=== PATIENT | male | born 1945 | race Caucasian/White ===

== ENCOUNTER → 2016-07-31 | Outpatient (CLI) | payer OTHER ==
--- NOTE | 2016-07-31 13:23 | DIAGNOSTIC IMAGING REPORT ---
PROCEDURE: XR HIP 2VW W W/O AP PELVIS-LT INDICATION: LEFT HIP PX TECHNIQUE: AP view of the pelvis and hips with lateral view of the left hip. COMPARISON: None. FINDINGS: LEFT HIP: No fracture or dislocation. Mild degenerative changes. PELVIS: Osteopenia but no suspicious osseous lesion. 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 IMPRESSION: 1. Mild left hip degenerative changes 2. Atherosclerosis
== END ==
LOC: XR SRH 12:43
DX: M16.12 Unilateral primary osteoarthritis, left hip (principal); I70.202 Unspecified atherosclerosis of native arteries of extremities, left leg

== ENCOUNTER → 2016-09-17 | Emergency (ER) | payer OTHER ==
--- NOTE | 2016-09-17 21:36 | ED ORDER SUMMARY ---
..... Patient: YANDEL CALVO OrderSheet [facility] VisitID: [id number] [place] [address] 71y, M Registration Date/Time: 09/17/2016 ORDER SHEET Weight: 136.0 kg (estimated) Allergies: NKA, No Known Drug Allergy GENERAL ORDERS: CBC w Diff Urgent (20:02 09/17/2016 Ricky EM) (Ack 20:03 IJurca ER Tech1) (Sent 20:03 IJurca ER Tech1) (20:05 AMcQuoid ER Tech1) CMP Urgent (20:02 09/17/2016 Ricky EM) (Ack 20:03 IJurca ER Tech1) (Sent 20:03 IJurca ER Tech1) (20:05 AMcQuoid ER Tech1) UA-Culture if indicated Urgent (20:02 09/17/2016 Ricky EM) (Ack 20:03 IJurca ER Tech1) (21:08 KKnebel R.N.) Lipase Urgent (20:02 09/17/2016 Ricky EM) (Ack 20:03 IJurca ER Tech1) (Sent 20:03 IJurca ER Tech1) (20:05 AMcQuoid ER Tech1) Amylase Urgent (20:02 09/17/2016 Ricky EM) (Ack 20:03 IJurca ER Tech1) (Sent 20:03 IJurca ER Tech1) (20:05 AMcQuoid ER Tech1) MEDICATION ORDERS: IV FLUIDS: IV NS : initial bolus 1000 mL (1000 mL/hr), then none - (NOW) (20:01 09/17/2016 Ricky EM) (20:14 KKnebel R.N.) Dilaudid IV 1 mg (HIGH ALERT MEDICATION, NOW) (20:09/17/2016 Ricky EM) (20:18 KKnebel R.N.) Protonix IVP 40mg 40 mg (Mix in NS 10ml over 2min) (21:35 09/17/2016 Indy ME) (Ack 21:45 RCnicanor R.N.) (21:47 Barbwidino R.N.) ORDER SHEET NOTES: [Electronically signed by Jazmine Barber R.N. (22:39 09/17/2016)] [Electronically signed by Cheng Orr MD (00:54 09/18/2016)] [Electronically locked/signed by Jazmine Barber R.N. (22:39 09/17/2016)]
--- NOTE | 2016-09-17 21:36 | ED ORDER SUMMARY ---
..... Patient: YANDEL CALVO OrderSheet [facility] VisitID: [id number] [place] [address] 71y, M Registration Date/Time: 09/17/2016 ORDER SHEET Weight: 136.0 kg (estimated) Allergies: NKA, No Known Drug Allergy GENERAL ORDERS: CBC w Diff Urgent (20:02 09/17/2016 Ricky EM) (Ack 20:03 IJurca ER Tech1) (Sent 20:03 IJurca ER Tech1) (20:05 AMcQuoid ER Tech1) CMP Urgent (20:02 09/17/2016 Ricky EM) (Ack 20:03 IJurca ER Tech1) (Sent 20:03 IJurca ER Tech1) (20:05 AMcQuoid ER Tech1) UA-Culture if indicated Urgent (20:02 09/17/2016 Ricky EM) (Ack 20:03 IJurca ER Tech1) (21:08 KKnebel R.N.) Lipase Urgent (20:02 09/17/2016 Ricky EM) (Ack 20:03 IJurca ER Tech1) (Sent 20:03 IJurca ER Tech1) (20:05 AMcQuoid ER Tech1) Amylase Urgent (20:02 09/17/2016 Ricky EM) (Ack 20:03 IJurca ER Tech1) (Sent 20:03 IJurca ER Tech1) (20:05 AMcQuoid ER Tech1) MEDICATION ORDERS: IV FLUIDS: IV NS : initial bolus 1000 mL (1000 mL/hr), then none - (NOW) (20:01 09/17/2016 Ricky EM) (20:14 KKnebel R.N.) Dilaudid IV 1 mg (HIGH ALERT MEDICATION, NOW) (20:09/17/2016 Ricky EM) (20:18 KKnebel R.N.) Protonix IVP 40mg 40 mg (Mix in NS 10ml over 2min) (21:35 09/17/2016 Indy EM) (Ack 21:45 RCnicanor R.N.) (21:47 Barbwidino R.N.) ORDER SHEET NOTES: [Electronically signed by Jazmine Barber R.N. (22:39 09/17/2016)] [Electronically signed by Cheng Orr MD (00:54 09/18/2016)] [Electronically locked/signed by Jazmine Barber R.N. (22:39 09/17/2016)]
--- NOTE | 2016-09-17 21:36 | ED CLINICAL REPORT ---
Clinical Report - Physicians/Mid Levels [facility] [address] [place] [address] 09/17/2016 19:34 Patient: YANDEL CALVO Time Seen: 1935. Arrived- By ambulance. Historian- patient and EMS personnel. HISTORY OF PRESENT ILLNESS Chief Complaint: ABDOMINAL PAIN. This started about 1 hour ago and is still present. At its maximum, severity described as moderate. When seen in the E.D., severity described as moderate. Modifying factors. Not worsened by anything. Not relieved by anything. It is described as "pain" and it is described as located in the upper abdomen. The patient has had nausea. No loss of appetite, vomiting or diarrhea. Similar symptoms previously: Occasionally. Recent medical care: Not recently seen/assessed. REVIEW OF SYSTEMS No constipation, black stools, hematemesis, difficulty with urination or pain with urination. No urinary frequency, bloody stools, fever, headache or sore throat. No blurred vision, chest pain, difficulty breathing, cough or joint pain. No skin rash, chills or back pain. All systems otherwise negative, except as recorded above. PAST HISTORY he reports a history of duodenal polyps. He says that he has had multiple endoscopies and that he is due to have another soon. He says that these polyps in the past have led to pancreatitis. Problems: Renal Insufficiency. Atrial Fibrillation. Congestive Heart Failure. Parotitis. Cancer. Pancreatitis. Peripheral Arterial Occlusive Disease. Paresthesia. Peripheral Vascular Disease. Panic Attack. Anxiety Reaction. Tetanus Status. Hypercholesterolemia. Syncope. Coronary Artery Disease. COPD - Chronic Obstructive Pulmonary Disease. Hypertension. Chronic Back Pain. Immunizations. SOCIAL HISTORY Occasional alcohol use. History of occasional drug use: marijuana. FAMILY HISTORY Denies family medical history. ADDITIONAL NOTES The nursing notes have been reviewed. PHYSICAL EXAM Vital Signs: 09/17/2016 19:38 BP: 121/69. HR: 61. RR: 16. O2 saturation: 92%. Temp: 97.7 F. Pain level now: 7/10. Have been reviewed. Appearance: Alert. Eyes: Pupils equal, round and reactive to light. ENT: Pharynx normal. Neck: Normal inspection. Neck supple. CVS: Normal heart rate and rhythm. Heart sounds normal. Respiratory: No respiratory distress. Breath sounds normal. Abdomen: Soft and nontender. Bowel sounds normal. No organomegaly. No mass. Back: Normal inspection. No CVA tenderness. Skin: Skin warm and dry. Normal skin color. Normal skin turgor. Extremities: Extremities exhibit normal ROM. No calf tenderness. No lower extremity edema. LABS, X-RAYS, AND EKG Laboratory Tests: UA-Culture if indicated: (ESTUARDO: 09/17/2016 21:03) ( [facility] 09/17/2016 21:24) Final results Test Result Flag Units (Reference) URINE COLOR YELLOW URINE APPEARANCE CLEAR URINE GLUCOSE NEGATIVE (NEGATIVE) URINE BILIRUBIN NEGATIVE (NEGATIVE) URINE KETONE NEGATIVE (NEGATIVE) URINE SPECIFIC GRAVITY >= 1.030 (1.010-1.030) URINE PH 5.5 (5.0-8.0) URINE PROTEIN NEGATIVE (NEGATIVE) URINE UROBILINOGEN 0.2 EU/dL (0.2-1.0) URINE NITRITE NEGATIVE (NEGATIVE) URINE BLOOD 1+ (NEGATIVE) URINE LEUK ESTERASE NEGATIVE (NEGATIVE) URINE RBC 3-5 rbc/hpf (0-1) URINE WBC 1-3 wbc/hpf (0-1) URINE EPITHELIAL CELLS 3-5 EPI/hpf (0-5) URINE BACTERIA FEW (1+) (NONE SEEN) URINE COMMENT CULT NOT INDICATED MUCUS 2+HYALINE CASTS 2+URINE CULTURES ARE SET-UP BASED ON THE FOLLOWING CRITERIA:POSITIVE NITRITEPOSITIVE LEUKOCYTE ESTERASEGREATER THAN 10 WHITE BLOOD CELLSMODERATE (2+) OR GREATER BACTERIA CBC w Diff: (ESTUARDO: 09/17/2016 19:44) ( [facility] 09/17/2016 20:22) Final results Test Result Flag Units (Reference) WHITE BLOOD COUNT 8.8 K/uL (4.5-11.5) RED BLOOD COUNT 4.60 M/uL (4.50-5.90) HEMOGLOBIN 14.1 gm/dL (13.5-17.5) HEMATOCRIT 42.6 % (41.0-53.0) MEAN CELL VOLUME 93 fL (80-100) MEAN CORPUSCULAR HGB 31 pg (26-34) MEAN CORPUSCULAR HGB CONC 33 g/dL (31-37) RED CELL DISTRIBUTION WIDTH 13.5 % (11.6-14.8) PLATELET COUNT 163 K/uL (150-400) NEUTROPHIL % 50.9 % (50-75) LYMPH % 39.4 % (25-40) MONO % 8.1 % (3-14) EOSINOPHIL % 1.3 % (0-4) BASOPHIL % 0.3 % (0-2) CMP: (ESTUARDO: 09/17/2016 19:44) ( MsgRcvd 09/17/2016 20:34) Final results Test Result Flag Units (Reference) GLUCOSE 111 H mg/dL (70-110) BUN 24 H mg/dL (7-18) CREATININE 1.2 mg/dL (0.6-1.3) Estimated GFR >60 mL/min Estimated GFR- >60 mL/min Note: Persistent reduction over 3 months in eGFR<60 mL/min/1.73 m2 defines CKD. Patients with eGFR values>=60 mL/min/1.73 m2 may also have CKD if evidence ofpersistent proteinuria. Additional information may be foundat www.kidney.org. SODIUM 143 mmol/L (136-145) POTASSIUM 4.2 mmol/L (3.5-5.1) CHLORIDE 106 mmol/L (98-107) CARBON DIOXIDE 32 mmol/L (21-32) CALCIUM 9.1 mg/dL (8.5-10.1) TOTAL PROTEIN 6.9 g/dL (6.4-8.2) ALBUMIN 3.5 g/dL (3.3-5.0) BILIRUBIN, TOTAL 0.2 mg/dL (0.0-1.0) ALKALINE PHOSPHATASE 55 U/L (46-116) AST (SGOT) 23 U/L (15-37) ALT (SGPT) 25 U/L (12-78) LIPASE 130 U/L (73-393) AMYLASE 48 U/L (25-115) . Pulse Oximetry: 09/17/2016 19:38 O2 saturation: 92%. (FIO2 - room air). Interpretation: normal. PROGRESS AND PROCEDURES Course of Care: Patient is stable. Patient/family counseled. Old medical records reviewed. Disposition: Discharged. Condition: stable. CLINICAL IMPRESSION Epigastric abdominal pain, now resolved. Possible acute gastritis INSTRUCTIONS No driving or operating machinery while taking medication. Sedative medication was given during your visit. Drink plenty of fluids. Avoid alcohol and NSAIDS. NSAIDS include aspirin, ibuprofen (Advil) and naproxen (Aleve). Avoid salty and spicy foods. Warnings: GENERAL WARNINGS: Return or contact your physician immediately if your condition worsens or changes unexpectedly, if not improving as expected, or if other problems arise. Prescription Medications: Pepcid 20 mg tablets: Take 1 orally every 12 hours. Dispense thirty (30). No refills. Substitution is permissible. Follow-up: Return to the emergency department if not able to be seen by Dr. Vergara. Understanding of the discharge instructions verbalized by patient and family. Follow-up with: Ozzie Vergara MD, [facility], , [address], [address] Follow up tomorrow. Call for an appointment. (Electronically signed by Cheng Orr MD 09/18/2016 0:54)
--- NOTE | 2016-09-17 21:36 | ED NURSING NOTES ---
Clinical Report - Nurses [facility] [address] [place] [address] 09/17/2016 19:34 Patient: YANDEL CALVO TRIAGE Triage time 19:38 Sep 17 2016. Acuity: LEVEL 3. Chief Complaint: ABDOMINAL PAIN. --19:49 Jazmine Barber R.N. 19:38 09/17/16. BP: 121/69. HR: 61. RR: 16. O2 saturation: 92%. Temp: 97.7 F. Pain level now: 01/26. --19:49 Jazmine Barber R.N. Weight: 136 kg estimated. Height/Length: 72 inches Estimated. BMI: 40.7. --22:38 Jazmine Barber R.N. Medications Alprazolam Oral 0.5 mg, as needed. Combivent Inhalation. Cyclobenzaprine HCl Oral 10 mg, daily. Hydrocodone-Acetaminophen Oral (Tablet 10-300 mg), 6x daily. Lexapro Oral 10 mg, daily. Lisinopril Oral 20 mg, daily. Nitroglycerin Sublingual 0.4 mg, PRN. Q-daniel. Tamsulosin HCl Oral 0.4 mg, daily. Venlafaxine HCl Oral 75 mg. Warfarin Sodium Oral 5 mg (F/S/M/W takes 6mg). --19:40 Jazmine Barber R.N. Amoxicillin-Pot Clavulanate Oral (Tablet 500-125 mg) 1 tablet, 2x a day. --19:41 Jazmine Barber R.N. Aspirin Oral (Tablet Chewable 81 mg) 1 tablet, daily. --19:41 Jazmine Barber R.N. Crestor Oral (Tablet 10 mg) 1 tablet, daily. --19:42 Jazmine Barber R.N. Finasteride 5mg, daily. --19:42 Jazmine Barber R.N. Lasix Oral (Tablet 40 mg) 1 tablet, daily. --19:43 Jazmine Barber R.N. Isosorbide Mononitrate Oral 30mg, daily. --19:43 Jazmine Barber R.N. Metoprolol Succinate ER Oral (Tablet Extended Release 24 Hour 200 mg) 1 tablet, daily. --19:51 Jazmine Barber R.N. MiraLax. --19:51 Jazmine Barber R.N. MiraLax Oral. --19:51 Jazmine Barber R.N. Nitrostat Sublingual. --19:51 Jazmine Barber R.N. Protonix Oral (Tablet Delayed Release 40 mg) 1 tablet, daily. --19:51 Jazmine Barber R.N. Pulmicort Inhalation. --19:52 Jazmine Barber R.N. Tamsulosin 0.4, daily. --19:53 Jazmine Barber R.N. Venlafaxine HCl ER Oral. --19:53 Jazmine Barber R.N. The following entry was struck by Jazmine Barber R.N., 19:54 (09/17/16) Reason - other(duplicate). <<STRICKEN ENTRY-- Metoprolol 25mg, daily. --19:40 aJzmine Barber R.N. --END STRIKE>>. Allergies NKA. --19:40 Jazmine Barber R.N. No Known Drug Allergy. --19:44 Jazmine Barber R.N. History Arrived by EMS, and from home. Historian: patient. The patient has had nausea and abdominal pain. No diarrhea or constipation. Last oral intake by patient was lunch today (about 1400 PM). 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 (IVF's). See EMS report. Oxygen administered by nasal cannula. IV fluid at keep open. PAST MEDICAL HX: Immunizations: up-to-date. SOCIAL HX: Smoker- current status unknown. History of occasional drug use: marijuana. No alcohol use. No recent travel. No infectious disease exposure. SELF HARM ASSESSMENT: A self harm assessment was performed. The patient answered "no" to the question "Do you have thoughts of harming or killing yourself?". FALL RISK ASSESSMENT: Fall risk assessment completed. No fall risk identified. NUTRITIONAL RISK ASSESSMENT: The nutritional risk assessment revealed no deficiencies. FUNCTIONAL ASSESSMENT: Functional assessment: no impairments noted. LEARNING NEEDS ASSESSMENT: The learning needs assessment revealed no barriers. ABUSE ASSESSMENT: Abuse assessment: The patient was asked "Do you feel safe in your home?". SKIN INTEGRITY ASSESSMENT: Skin integrity risk assessment completed. No skin integrity risk identified. --19:49 Jazmine Barber R.N. PROBLEMS: Head Injury. Headache. Weakness. Renal Insufficiency. Atrial Fibrillation. Congestive Heart Failure. Pedal Edema. Stomach Cancer. Parotitis. Dysphagia. GI Disease. Hypoxia. Cancer. Vomiting. Pancreatitis. Peripheral Arterial Occlusive Disease. Paresthesia. Peripheral Vascular Disease. Constipation. Panic Attack. Anxiety Reaction. Back Injury. Biliary Colic. Intervertebral Disc Disease. Animal Bite. Cellulitis. Tetanus Status. Hypercholesterolemia. Chest Pain. Syncope. Coronary Artery Disease. COPD - Chronic Obstructive Pulmonary Disease. Hypertension. Chronic Back Pain. Immunizations. --19:45 Jazmine Barber R.N. Abdominal Pain [RuleOut]. --21:34 Cheng Orr MD Gastritis [RuleOut]. --21:34 Cheng Orr MD The following entry was modified by Cheng Orr MD, 21:34 <<STRICKEN ENTRY-- Gastritis. --02:59 Jazmine Barber R.N. --END STRIKE>> The following entry was modified by Cheng Orr MD, 21:34 <<STRICKEN ENTRY-- Abdominal Pain. --01:15 Jazmine Barber R.N. --END STRIKE>>. ADDITIONAL SURGERIES: Aortic stent placement . Appendectomy. Carotid Surgery. Cholecystectomy. Colonoscopy. Coronary Angioplasty. Coronary Artery Bypass Graft. Endoscopy. Femoral artery stents. Inguinal Hernia Repair. Peripheral Vascular Surgery. Polyp Removal (stomach). --19:45 Jazmine Barber R.N. Interventions ID and allergy band on patient. --19:49 Jazmine Barber R.N. PHYSICAL ASSESSMENT To room via stretcher. GENERAL / NEURO / PSYCH: Alert. Oriented X 4. Appears in pain. RESPIRATORY: Respirations not labored. CVS: Capillary refill less than 2 seconds. GI / : Abdominal tenderness. SKIN: Skin is warm and dry. --19:50 Jazmine Barber R.N. NURSING PROGRESS NOTES Patient gowned. Head of bed elevated. Patient identifiers checked. Call light placed in reach. Side rails up x 1. Bed placed in lowest position. Brakes of bed on. --19:50 Jazmine Barber R.N. 19:40. Checked patient name and birthdate: patient confirmed. Blood samples drawn from the right antecubital space by tech per protocol ; labeled in presence of the patient and sent to lab: tony set. --19:59 Leilani Greene, ER Tech1 20:14 09/17/2016 Site #1 started prior to arrival by EMS via IV in the left antecubital space with an 18g angiocath. Saline lock flushed with 10 mL saline. --20:14 Jazmine Barber R.N. 20:14 09/17/2016 Started bag #1 1000 mL IV Fluids IV NS (Saline); bolus of 1000 mL over 1 hour(s) via site #1 --20:14 Jazmine Barber R.N. 20:16 Urine requested, patient unable to void at this time. Patient asked to remain NPO at this time. --20:16 Leilani Greene, ER Tech1 20:18 09/17/2016 Dilaudid (HYDROmorphone HCl PF) IVP 1 mg given over 2 minute(s) via site #1. Allergies verified, confirmed 5 rights and sedative warning given to the patient and patient's family. IV patency established. IV site checked: no pain, redness, or swelling. IV flushed thoroughly pre- and post-medication administration. --20:18 Jazmine Barber R.N. 21:47 09/17/2016 PROTONIX (Pantoprazole Sodium) IVP 40 mg given over 2 minute(s) via site #1. Allergies verified and confirmed 5 rights. IV patency established. IV site checked: no pain, redness, or swelling. IV flushed thoroughly pre- and post-medication administration. IVP given by RN. --21:47 Radhames Cortez R.N. DISPOSITION / DISCHARGE Departure time: 22:30 Sep 17 2016. Condition at departure: improved. Discharge instructions provided and reviewed with the patient. Reviewed medication(s) side effects, precautions, dosing and course information. Reviewed referral to a primary care physician. Patient verbalized understanding. Written instructions provided in Nigerien. The patient was discharged home and accompanied by family. He left the Emergency Department ambulatory and via private vehicle. Family member driving. --22:30 Jazmine Barber R.N. 22:29 09/17/16. BP: 140/67. HR: 58. O2 saturation: 95%. Pain level now: 10/27. --22:30 Jazmine Barber R.N. Locked/Released at 09/17/2016 22:39 by Jazmine Barber R.N.
--- NOTE | 2016-09-18 00:55 | ED MAR SUMMARY ---
..... Medication Administration Record [address] [place] [address] Patient: YANDEL CALVO Visit ID: [id number] 71y, M Weight: 136.0 kg Height/Length: 72 in BMI: 40.7 ALLERGIES: No Known Drug Allergy, NKA Start 20:14 09/17/2016 Jazmine Barber R.N. Medication Administered: IV NS (SALINE), Dose: IV Fluids, Bolus: 1000 mL over 1 hour(s), Dispensed: 1000 mL bag, Site: #1 left AC. Medication Ordered: IV NS : initial bolus 1000 mL (1000 mL/hr), then none - (NOW). Given 20:18 09/17/2016 Jazmine Barber R.N. Medication Administered: DILAUDID [IVP] (HYDROMORPHONE HCL PF), Dose: 1 mg IVP over 2 minute(s), Site: #1 left AC. Medication Ordered: Dilaudid IV 1 mg (HIGH ALERT MEDICATION, NOW). Given 21:47 09/17/2016 Radhames Cortez R.N. Medication Administered: PROTONIX [IVP] (PANTOPRAZOLE SODIUM), Dose: 40 mg IVP over 2 minute(s), Site: #1 left AC. Medication Ordered: Protonix IVP 40mg 40 mg (Mix in NS 10ml over 2min).
--- NOTE | 2016-09-18 00:55 | ED DISCHARGE INSTRUCTIONS ---
Patient: YANDEL CALVO General Instructions [facility] VisitID: [id number] [place] [address] 71y, M Registration Date/Time: 09/17/2016 Epigastric abdominal pain, now resolved. INSTRUCTIONS No driving or operating machinery while taking medication. Sedative medication was given during your visit. Drink plenty of fluids. Avoid alcohol and NSAIDS. NSAIDS include aspirin, ibuprofen (Advil) and naproxen (Aleve). Avoid salty and spicy foods. Warnings: GENERAL WARNINGS: Return or contact your physician immediately if your condition worsens or changes unexpectedly, if not improving as expected, or if other problems arise. Prescription Medications: Pepcid 20 mg tablets: Take 1 orally every 12 hours. Dispense thirty (30). No refills. Substitution is permissible. Follow-up: Return to the emergency department if not able to be seen by Dr. Vergara. Understanding of the discharge instructions verbalized by patient and family. Follow-up with: Ozzie Vergara MD, [facility], [facility], [address] [facility] [facility], [id number] Follow up tomorrow. Call for an appointment. ADDITIONAL INFORMATION Gastritis (Adult) Gastritis is an irritation of the stomach lining. It can be acute (recent) or chronic (lasting a long time). Gastritis can be caused by overuse of alcohol or anti-inflammatory medications (such as aspirin, ibuprofen, or prednisone). H pyloriinfection can also cause chronic gastritis. Gastritis can cause a dull ache or burning pain in the upper abdomen. Other symptoms include nausea, vomiting, loss of appetite, and belching or bloating. Blood in the vomit or stools (red or black) is a sign of bleeding in the stomach. This requires immediate medical attention. Tests for H pyloriare used to screen for bacterial infection. If no infection is found, gastritis can be treated by stopping the cause and treating with antacids plus an acid theo medication. If H pylori infection is found, antibiotics will also be prescribed. Persons 55 years and older may undergo other tests before treatment is started. Two common tests are used to evaluate your symptoms. An upper GI series is an x-ray taken after you drink a chalky liquid called barium. This coats the stomach and allows the doctor to view any problems in the stomach on the x-ray. Another test is called endoscopy, during which a long thin tube called an endoscope is passed down your throat to the stomach. A camera at the end of the scope allows the doctor to view inside the stomach to check the cause of your symptoms. Home Care: Take the prescribed acid theo medication for the full course of treatment even if you begin to feel better sooner. This medication can take up to several days to fully control your symptoms. If you cant afford the prescribed medication, you can try obfr-smw-kydgogs acid blockers, such as Pepcid AC, Tagamet, Zantac, or Aciphex. If these do not relieve your symptoms, a stronger acid-theo can be tried, such as Prilosec OTC. If you have been prescribed an antibiotic to treat H pyloriinfection, finish the full course of medication. Do so even if you begin to feel better sooner. If you stop the medication too soon, the infection can return and be harder to treat. You can use antacids, such as Tums, Rolaids, Mylanta, or Maalox, for pain. This will be useful the first few days after starting acid blockers when the blockers havent started working yet. Follow the directions on the label. Liquid antacids may work better than tablets. Note that antacids can interfere with absorption of certain medications. Specifically, do not take Tagamet (cimetidine), Zantac (ranitidine), or Carafate (sucralfate) within 1 hour of taking an antacid. Talk with your pharmacist if you have any questions. Symptoms of gastritis can be worsened by certain foods. Limit or avoid fatty, fried, and spicy foods, as well as coffee, chocolate, mint, and foods with high acid content such as tomatoes and citrus fruit and juices (orange, grapefruit, lemon). Avoid alcohol, caffeine, and tobacco, which can delay healing. Avoid aspirin and anti-inflammatory medications such as ibuprofen (Advil, Motrin) and naproxen (Naprosyn, Aleve). Acetaminophen (Tylenol) is safe to use. Do not take more than the amount listed on the label. Follow Up with your doctor, or as advised by our staff. Further testing may be needed. If you do not improve over the next 4 days, contact your doctor. If you had an x-ray, CT scan, or ECG (electrocardiogram), it will be reviewed by a specialist. Youll be notified of any new findings that affect your care. Get Prompt Medical Attention if any of the following occur: Stomach pain gets worse or moves to the lower right abdomen (appendix area) Chest pain appears or gets worse, or spreads to the back, neck, shoulder, or arm Frequent vomiting (cant keep down liquids) Blood in the stool or vomit (red or black in color) Feeling weak or dizzy, fainting, or trouble breathing Fever of 100.4F (38C) or higher, or as directed by your healthcare provider [place] Diet A bland diet is used for patients with an upset stomach. It consists of foods that are mild and easy to digest. It is better to eat small frequent meals rather than three large meals a day. BEVERAGES OK: Fruit juices, non-caffeinated teas and coffee, non-carbonated stewart AVOID: Carbonated beverage, caffeinated tea and coffee, all alcoholic beverages BREAD OK: Refined white, wheat or rye bread, benito or soda crackers, [place] toast, plain rolls, bagels AVOID: Whole-grain bread CEREAL OK: Refined cereals: cooked or ready to eat AVOID: Whole grain cereals and granola, or those containing bran, seeds or nuts DESSERTS OK: Peanut butter and all others except those to "avoid" AVOID: Chocolate, cocoa, coconut, popcorn, nuts, seeds, jam, marmalade FRUITS OK: Canned, cooked, frozen or fresh fruits without seeds or tough skin AVOID: Olives, skin and seeds of fruit MEATS OK: All fresh or preserved meat, fish and fowl AVOID: Any that are prepared with those spices to "avoid" CHEESE & EGGS OK: Eggs, cottage cheese, cream cheese, other cheeses AVOID: All cheeses made with those spices to "avoid" POTATOES & PASTA OK: Potato, rice, macaroni, noodles, spaghetti AVOID: None SOUPS OK: All soups without heavy seasoning AVOID: Soups made with those spices to "avoid" VEGETABLES OK: Canned, cooked, fresh or frozen mildly flavored vegetables without seeds, skins or coarse fiber AVOID: Vegetables prepared with those spices to "avoid"; skin and seeds of vegetables and those with coarse fiber SPICES OK: Salt, lemon and [place] juice, vinegar, all extracts, sylwia, cinnamon, thyme, mace, allspice, paprika AVOID: [place] powder, cloves, pepper, seed spices, garlic, gravy pickles, highly seasoned salad dressings Famotidine Oral tablet What is this medicine? FAMOTIDINE (fa PATTIE ti mahsa) is a type of antihistamine that blocks the release of stomach acid. It is used to treat stomach or intestinal ulcers. It can also relieve heartburn from acid reflux. How should I use this medicine? Take this medicine by mouth with a glass of water. Follow the directions on the prescription label. If you only take this medicine once a day, take it at bedtime. Take your doses at regular intervals. Do not take your medicine more often than directed. Talk to your network cable installer regarding the use of this medicine in children. Special care may be needed. What side effects may I notice from receiving this medicine? Side effects that you should report to your doctor or health furnace caretaker as soon as possible: agitation, nervousness confusion hallucinations skin rash, itching Side effects that usually do not require medical attention (report to your doctor or health furnace caretaker if they continue or are bothersome): constipation diarrhea dizziness headache What may interact with this medicine? delavirdine itraconazole ketoconazole What if I miss a dose? If you miss a dose, take it as soon as you can. If it is almost time for your next dose, take only that dose. Do not take double or extra doses. Where should I keep my medicine? Keep out of the reach of children. Store at room temperature between 15 and 30 degrees C (59 and 86 degrees F). Do not freeze. Throw away any unused medicine after the expiration date. What should I tell my health care provider before I take this medicine? They need to know if you have any of these conditions: kidney or liver disease trouble swallowing an unusual or allergic reaction to famotidine, other medicines, foods, dyes, or preservatives or trying to get breast-feeding What should I watch for while using this medicine? Tell your doctor or health furnace caretaker if your condition does not start to get better or if it gets worse. Finish the full course of tablets prescribed, even if you feel better. Do not take with aspirin, ibuprofen or other antiinflammatory medicines. These can make your condition worse. Do not smoke cigarettes or drink alcohol. These cause irritation in your stomach and can increase the time it will take for ulcers to heal. If you get black, tarry stools or vomit up what looks like coffee grounds, call your doctor or health furnace caretaker at once. You may have a bleeding ulcer. You have been given the following additional information: Gastritis (Adult) Diet, [place] (Adult) Famotidine Oral tablet No driving or operating machinery while taking medication. Sedative medication was given during your visit. (Electronically signed by Cheng Orr MD 09/18/2016 0:54)
--- NOTE | 2016-09-18 00:55 | ED MAR SUMMARY ---
..... Medication Administration Record [facility] [address] [place] [address] Patient: YANDEL CALVO Visit ID: [id number] 71y, M Weight: 136.0 kg Height/Length: 72 in BMI: 40.7 ALLERGIES: No Known Drug Allergy, NKA Start 20:14 09/17/2016 Jazmine Barber R.N. Medication Administered: IV NS (SALINE), Dose: IV Fluids, Bolus: 1000 mL over 1 hour(s), Dispensed: 1000 mL bag, Site: #1 left AC. Medication Ordered: IV NS : initial bolus 1000 mL (1000 mL/hr), then none - (NOW). Given 20:18 09/17/2016 Jazmine Barber R.N. Medication Administered: DILAUDID [IVP] (HYDROMORPHONE HCL PF), Dose: 1 mg IVP over 2 minute(s), Site: #1 left AC. Medication Ordered: Dilaudid IV 1 mg (HIGH ALERT MEDICATION, NOW). Given 21:47 09/17/2016 Radhames Cortez R.N. Medication Administered: PROTONIX [IVP] (PANTOPRAZOLE SODIUM), Dose: 40 mg IVP over 2 minute(s), Site: #1 left AC. Medication Ordered: Protonix IVP 40mg 40 mg (Mix in NS 10ml over 2min).
--- NOTE | 2016-09-18 00:55 | ED MED RECONCILIATION SUMMARY ---
Patient: YANDEL CALVO Medication Reconciliation Report [facility] VisitID: [id number] [place] [address] 71y, M Registration Date/Time: 09/17/2016 Weight: 136.0 kg Height/Length: 72 in. BMI: 40.7 ALLERGIES: NKA, No Known Drug Allergy The patient's Home Medications are listed below: THE FOLLOWING MEDICATIONS NEED TO BE RECONCILED: Alprazolam Oral 0.5 mg Amoxicillin-Pot Clavulanate Oral (500-125 mg) 1 tablet, 2x a day Aspirin Oral (81 mg) 1 tablet, daily Combivent Inhalation Crestor Oral (10 mg) 1 tablet, daily Cyclobenzaprine HCl Oral 10 mg, daily Finasteride 5mg, daily Hydrocodone-Acetaminophen Oral (10-300 mg), 6x daily Isosorbide Mononitrate Oral 30mg, daily Lasix Oral (40 mg) 1 tablet, daily Lexapro Oral 10 mg, daily Lisinopril Oral 20 mg, daily Metoprolol Succinate ER Oral (200 mg) 1 tablet, daily MiraLax MiraLax Oral Nitroglycerin Sublingual 0.4 mg, PRN Nitrostat Sublingual Protonix Oral (40 mg) 1 tablet, daily Pulmicort Inhalation Q-daniel Tamsulosin 0.4, daily Tamsulosin HCl Oral 0.4 mg, daily Venlafaxine HCl ER Oral Venlafaxine HCl Oral 75 mg Warfarin Sodium Oral 5 mg, F/S/M/W takes 6mg The source(s) of the original Home Medication information: Not obtained. The following Medications were given to the patient in the Emergency Department: IV NS IV Fluids bolus 1000 mL over 1 hour(s), administered: 09/17/2016 8:14:00 PM Dilaudid [IVP] IVP 1 mg, administered: 09/17/2016 8:18:00 PM PROTONIX [IVP] IVP 40 mg, administered: 09/17/2016 9:47:00 PM The following Medications were prescribed to the patient: Pepcid 20 mg tablets: Take 1 orally every 12 hours. Dispense thirty (30). No refills. Substitution is permissible. -- Cheng Orr MD
--- NOTE | 2016-09-18 00:55 | ED DISCHARGE INSTRUCTIONS ---
Patient: YANDEL CALVO General Instructions [facility] VisitID: [id number] [place] [address] 71y, M Registration Date/Time: 09/17/2016 Epigastric abdominal pain, now resolved. INSTRUCTIONS No driving or operating machinery while taking medication. Sedative medication was given during your visit. Drink plenty of fluids. Avoid alcohol and NSAIDS. NSAIDS include aspirin, ibuprofen (Advil) and naproxen (Aleve). Avoid salty and spicy foods. Warnings: GENERAL WARNINGS: Return or contact your physician immediately if your condition worsens or changes unexpectedly, if not improving as expected, or if other problems arise. Prescription Medications: Pepcid 20 mg tablets: Take 1 orally every 12 hours. Dispense thirty (30). No refills. Substitution is permissible. Follow-up: Return to the emergency department if not able to be seen by Dr. Vergara. Understanding of the discharge instructions verbalized by patient and family. Follow-up with: Ozzie Vergara MD, [facility], [facility], [address] [facility], [id number] Follow up tomorrow. Call for an appointment. ADDITIONAL INFORMATION Gastritis (Adult) Gastritis is an irritation of the stomach lining. It can be acute (recent) or chronic (lasting a long time). Gastritis can be caused by overuse of alcohol or anti-inflammatory medications (such as aspirin, ibuprofen, or prednisone). H pyloriinfection can also cause chronic gastritis. Gastritis can cause a dull ache or burning pain in the upper abdomen. Other symptoms include nausea, vomiting, loss of appetite, and belching or bloating. Blood in the vomit or stools (red or black) is a sign of bleeding in the stomach. This requires immediate medical attention. Tests for H pyloriare used to screen for bacterial infection. If no infection is found, gastritis can be treated by stopping the cause and treating with antacids plus an acid theo medication. If H pylori infection is found, antibiotics will also be prescribed. Persons 55 years and older may undergo other tests before treatment is started. Two common tests are used to evaluate your symptoms. An upper GI series is an x-ray taken after you drink a chalky liquid called barium. This coats the stomach and allows the doctor to view any problems in the stomach on the x-ray. Another test is called endoscopy, during which a long thin tube called an endoscope is passed down your throat to the stomach. A camera at the end of the scope allows the doctor to view inside the stomach to check the cause of your symptoms. Home Care: Take the prescribed acid theo medication for the full course of treatment even if you begin to feel better sooner. This medication can take up to several days to fully control your symptoms. If you cant afford the prescribed medication, you can try xagr-ljq-wayrruo acid blockers, such as Pepcid AC, Tagamet, Zantac, or Aciphex. If these do not relieve your symptoms, a stronger acid-theo can be tried, such as Prilosec OTC. If you have been prescribed an antibiotic to treat H pyloriinfection, finish the full course of medication. Do so even if you begin to feel better sooner. If you stop the medication too soon, the infection can return and be harder to treat. You can use antacids, such as Tums, Rolaids, Mylanta, or Maalox, for pain. This will be useful the first few days after starting acid blockers when the blockers havent started working yet. Follow the directions on the label. Liquid antacids may work better than tablets. Note that antacids can interfere with absorption of certain medications. Specifically, do not take Tagamet (cimetidine), Zantac (ranitidine), or Carafate (sucralfate) within 1 hour of taking an antacid. Talk with your pharmacist if you have any questions. Symptoms of gastritis can be worsened by certain foods. Limit or avoid fatty, fried, and spicy foods, as well as coffee, chocolate, mint, and foods with high acid content such as tomatoes and citrus fruit and juices (orange, grapefruit, lemon). Avoid alcohol, caffeine, and tobacco, which can delay healing. Avoid aspirin and anti-inflammatory medications such as ibuprofen (Advil, Motrin) and naproxen (Naprosyn, Aleve). Acetaminophen (Tylenol) is safe to use. Do not take more than the amount listed on the label. Follow Up with your doctor, or as advised by our staff. Further testing may be needed. If you do not improve over the next 4 days, contact your doctor. If you had an x-ray, CT scan, or ECG (electrocardiogram), it will be reviewed by a specialist. Youll be notified of any new findings that affect your care. Get Prompt Medical Attention if any of the following occur: Stomach pain gets worse or moves to the lower right abdomen (appendix area) Chest pain appears or gets worse, or spreads to the back, neck, shoulder, or arm Frequent vomiting (cant keep down liquids) Blood in the stool or vomit (red or black in color) Feeling weak or dizzy, fainting, or trouble breathing Fever of 100.4F (38C) or higher, or as directed by your healthcare provider [place] Diet A bland diet is used for patients with an upset stomach. It consists of foods that are mild and easy to digest. It is better to eat small frequent meals rather than three large meals a day. BEVERAGES OK: Fruit juices, non-caffeinated teas and coffee, non-carbonated stewart AVOID: Carbonated beverage, caffeinated tea and coffee, all alcoholic beverages BREAD OK: Refined white, wheat or rye bread, benito or soda crackers, [place] toast, plain rolls, bagels AVOID: Whole-grain bread CEREAL OK: Refined cereals: cooked or ready to eat AVOID: Whole grain cereals and granola, or those containing bran, seeds or nuts DESSERTS OK: Peanut butter and all others except those to "avoid" AVOID: Chocolate, cocoa, coconut, popcorn, nuts, seeds, jam, marmalade FRUITS OK: Canned, cooked, frozen or fresh fruits without seeds or tough skin AVOID: Olives, skin and seeds of fruit MEATS OK: All fresh or preserved meat, fish and fowl AVOID: Any that are prepared with those spices to "avoid" CHEESE & EGGS OK: Eggs, cottage cheese, cream cheese, other cheeses AVOID: All cheeses made with those spices to "avoid" POTATOES & PASTA OK: Potato, rice, macaroni, noodles, spaghetti AVOID: None SOUPS OK: All soups without heavy seasoning AVOID: Soups made with those spices to "avoid" VEGETABLES OK: Canned, cooked, fresh or frozen mildly flavored vegetables without seeds, skins or coarse fiber AVOID: Vegetables prepared with those spices to "avoid"; skin and seeds of vegetables and those with coarse fiber SPICES OK: Salt, lemon and [place] juice, vinegar, all extracts, sylwia, cinnamon, thyme, mace, allspice, paprika AVOID: [place] powder, cloves, pepper, seed spices, garlic, gravy pickles, highly seasoned salad dressings Famotidine Oral tablet What is this medicine? FAMOTIDINE (fa PATTIE ti mahsa) is a type of antihistamine that blocks the release of stomach acid. It is used to treat stomach or intestinal ulcers. It can also relieve heartburn from acid reflux. How should I use this medicine? Take this medicine by mouth with a glass of water. Follow the directions on the prescription label. If you only take this medicine once a day, take it at bedtime. Take your doses at regular intervals. Do not take your medicine more often than directed. Talk to your money laundering investigator regarding the use of this medicine in children. Special care may be needed. What side effects may I notice from receiving this medicine? Side effects that you should report to your doctor or health health care liaison as soon as possible: agitation, nervousness confusion hallucinations skin rash, itching Side effects that usually do not require medical attention (report to your doctor or health health care liaison if they continue or are bothersome): constipation diarrhea dizziness headache What may interact with this medicine? delavirdine itraconazole ketoconazole What if I miss a dose? If you miss a dose, take it as soon as you can. If it is almost time for your next dose, take only that dose. Do not take double or extra doses. Where should I keep my medicine? Keep out of the reach of children. Store at room temperature between 15 and 30 degrees C (59 and 86 degrees F). Do not freeze. Throw away any unused medicine after the expiration date. What should I tell my health care provider before I take this medicine? They need to know if you have any of these conditions: kidney or liver disease trouble swallowing an unusual or allergic reaction to famotidine, other medicines, foods, dyes, or preservatives or trying to get breast-feeding What should I watch for while using this medicine? Tell your doctor or health health care liaison if your condition does not start to get better or if it gets worse. Finish the full course of tablets prescribed, even if you feel better. Do not take with aspirin, ibuprofen or other antiinflammatory medicines. These can make your condition worse. Do not smoke cigarettes or drink alcohol. These cause irritation in your stomach and can increase the time it will take for ulcers to heal. If you get black, tarry stools or vomit up what looks like coffee grounds, call your doctor or health health care liaison at once. You may have a bleeding ulcer. You have been given the following additional information: Gastritis (Adult) Diet, [place] (Adult) Famotidine Oral tablet No driving or operating machinery while taking medication. Sedative medication was given during your visit. (Electronically signed by Cheng Orr MD 09/18/2016 0:54)
--- NOTE | 2016-09-18 00:55 | ED MED RECONCILIATION SUMMARY ---
Patient: YANDEL CALVO Medication Reconciliation Report [facility] VisitID: [id number] [place] [address] 71y, M Registration Date/Time: 09/17/2016 Weight: 136.0 kg Height/Length: 72 in. BMI: 40.7 ALLERGIES: NKA, No Known Drug Allergy The patient's Home Medications are listed below: THE FOLLOWING MEDICATIONS NEED TO BE RECONCILED: Alprazolam Oral 0.5 mg Amoxicillin-Pot Clavulanate Oral (500-125 mg) 1 tablet, 2x a day Aspirin Oral (81 mg) 1 tablet, daily Combivent Inhalation Crestor Oral (10 mg) 1 tablet, daily Cyclobenzaprine HCl Oral 10 mg, daily Finasteride 5mg, daily Hydrocodone-Acetaminophen Oral (10-300 mg), 6x daily Isosorbide Mononitrate Oral 30mg, daily Lasix Oral (40 mg) 1 tablet, daily Lexapro Oral 10 mg, daily Lisinopril Oral 20 mg, daily Metoprolol Succinate ER Oral (200 mg) 1 tablet, daily MiraLax MiraLax Oral Nitroglycerin Sublingual 0.4 mg, PRN Nitrostat Sublingual Protonix Oral (40 mg) 1 tablet, daily Pulmicort Inhalation Q-daniel Tamsulosin 0.4, daily Tamsulosin HCl Oral 0.4 mg, daily Venlafaxine HCl ER Oral Venlafaxine HCl Oral 75 mg Warfarin Sodium Oral 5 mg, F/S/M/W takes 6mg The source(s) of the original Home Medication information: Not obtained. The following Medications were given to the patient in the Emergency Department: IV NS IV Fluids bolus 1000 mL over 1 hour(s), administered: 09/17/2016 8:14:00 PM Dilaudid [IVP] IVP 1 mg, administered: 09/17/2016 8:18:00 PM PROTONIX [IVP] IVP 40 mg, administered: 09/17/2016 9:47:00 PM The following Medications were prescribed to the patient: Pepcid 20 mg tablets: Take 1 orally every 12 hours. Dispense thirty (30). No refills. Substitution is permissible. -- Cheng Orr MD
== END ==
LOC: ED SRH 19:35
DX: R10.13 Epigastric pain (principal); J44.9 Chronic obstructive pulmonary disease, unspecified; I10 Essential (primary) hypertension; Z79.891 Long term (current) use of opiate analgesic; Z79.84 Long term (current) use of oral hypoglycemic drugs; Z79.01 Long term (current) use of anticoagulants; Z79.899 Other long term (current) drug therapy; Z88.8 Allergy status to other drugs, medicaments and biological substances
CPT/HCPCS: 90004; 90100; 92235; 92530; 95059

== ENCOUNTER 2016-10-09 12:12 | Outpatient (CLI) | payer OTHER | END 2016-10-09 23:00 | LOC: LAB SRH 12:12 | DX: Z51.81 Encounter for therapeutic drug level monitoring (principal); Z79.01 Long term (current) use of anticoagulants | CPT/HCPCS: 90074; 94060 ==

== ENCOUNTER 2016-10-14 16:17 | Outpatient (CLI) | payer OTHER | END 2016-10-14 23:00 | LOC: LAB SRH 16:17 | DX: R76.8 Other specified abnormal immunological findings in serum (principal) | CPT/HCPCS: 90074; 90100; 90858; 91046; 91096; 91504; 95059 ==

== ENCOUNTER 2016-10-14 16:21 | Outpatient (CLI) | payer OTHER | END 2016-10-14 23:00 | LOC: LAB SRH 16:21 | DX: R55 Syncope and collapse (principal); E55.9 Vitamin D deficiency, unspecified; Z12.5 Encounter for screening for malignant neoplasm of prostate | CPT/HCPCS: 90074; 90100; 91046; 91096; 91504; 95059 ==

== ENCOUNTER 2016-12-01 22:25 | Emergency (ER) | payer OTHER ==
--- NOTE | 2016-12-02 03:12 | DIAGNOSTIC IMAGING REPORT ---
PROCEDURE: CT HEAD WITHOUT CONTRAST INDICATION: STROKE, vision loss in one eye a few days ago TECHNIQUE: Axial CT images were acquired through the head. Coronal and sagittal reformations were created. COMPARISON: 05/11/2016 FINDINGS: Study limited by motion artifact. Streak artifact through the temporal and occipital lobe regions. Mild patchy hypodensity in the bilateral frontal lobe periventricular and subcortical white matter. Curvilinear focal hypodensity in the right frontal white matter tracts which new since the previous study. No intracranial hemorrhage or extraaxial fluid collections. Ventricles are normal in size, shape and position. There is no mass, mass effect or midline shift. The velasquez-white matter differentiation is normal. There is no edema. Moderate calcific atherosclerosis of the intracranial internal carotid arteries. The calvarium is intact. The paranasal sinuses and mastoid air cells are normally aerated. The extracranial soft tissues and orbits are normal. IMPRESSION: 1. No CT evidence of acute intracranial hemorrhage or edema. 2. Chronic microvascular ischemic changes with progression since the previous study, specifically right frontal white matter tract location. MRI (with sedation/antianxiety medication) is recommended. 3. Findings discussed with Dr. De Guzman at 03:[address] scans at this facility use dose modulation, iterative reconstruction, and/or weight-based dosing when appropriate to reduce radiation dose to as low as reasonably achievable.
--- NOTE | 2016-12-02 05:07 | DIAGNOSTIC IMAGING REPORT ---
PROCEDURE: XR CHEST 1 VIEW INDICATION: SHORTNESS OF BREATH TECHNIQUE: Portable AP view 11:11 p.m. COMPARISON: Chest x-ray 10/29/2015. FINDINGS: Median sternotomy with CABG and mild cardiomegaly. Mediastinum and prior vessels are normal. Left basilar scarring. Thorax is normal. IMPRESSION: 1. CABG with mild cardiomegaly 2. Left basilar scarring
--- NOTE | 2016-12-03 12:45 | ED ORDER SUMMARY ---
..... Patient: YANDEL CALVO OrderSheet [facility] VisitID: [id number] [place] [address] 71y, M Registration Date/Time: 12/01/2016 ORDER SHEET Weight: 113.3 kg Allergies: NKA, No Known Drug Allergy GENERAL ORDERS: Chest 1V Urgent (23:14 12/01/2016 Maximilian EM) (Ack 23:28 Scooter) (23:31 Denia) Poll Watcher (Continuous) (23:14 12/01/2016 Maximilian EM) (23:14 Valerik R.N.) PT with INR Urgent (23:12/01/2016 Maximilian EM) (23:14 Alfredo R.N.) Cardiac Panel Stat (23:12/01/2016 Maixmilian EM) (23:14 Alfredo R.N.) BNP Urgent (23:12/01/2016 Maximilian EM) (23:14 Alfredo R.N.) D-Dimer Urgent (23:14 12/01/2016 Maximilian EM) (23:14 Valerik R.N.) Oxygen (2 L/min) (NC) (23:12/01/2016 Maximilian EM) (23:14 Alfredo R.N.) Pulse oximeter (23:12/01/2016 Maximilian EM) (23:14 Valerik R.N.) EKG - ER Stat (23:12/01/2016 Maximilian EM) (23:21 Alfredo R.N.) CT Head wo Cont Urgent (01:12/02/2016 Maximilian EM) (Ack 1:07 Scooter) (1:18 MCenochk R.N.) - (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) (01:02 12/02/2016 Maximilian EM) (1:03 Alfredo R.N.) RT Evaluation Stat (01:12/02/2016 Maximilian EM) (Ack 1:07 Scooter) (1:40 Liam R.N.) ESR Urgent (01:12/02/2016 Maximilian EM) (Ack 1:07 Scooter) (1:41 Liam Cannon.N.) Peak Flow (pre & post) Stat (01:16 12/02/2016 Maximilian EM) (1:40 Liam Cannon.N.) Lipase Urgent (02:02 12/02/2016 Maximilian EM) (2:27 Liam R.N.) MEDICATION ORDERS: Percocet PO 2 tabs 5/225 (NOW) (01:00 12/02/2016 Maximilian EM) (1:11 Alfredo R.N.) Albuterol Neb Tx 3 unit doses (NOW, HHN) (01:03 12/02/2016 Maximilian EM) (Ack 2:34 Liam Cannon.N.) (2:35 Liam Cannon.N.) LORazepam PO 0.5 mg + 0.5 mg (NOW) (01:52 12/02/2016 Maximilian EM) (Ack 2:02 Liam Cannon.N.) (Cancelled: It should have been IV2:15 Maximilian EM) Prednisone PO 60 mg (NOW) (05:23 12/02/2016 Maximilian EM) (Ack 5:26 Liam R.N.) (5:33 Liam Cannon.N.) Albuterol Neb Tx 1 unit dose (HHN) (05:38 12/02/2016 Liam NyN. verbal order read back to Maximilian EM) (Ack 5:40 Liam R.N.) (5:51 Liam RNikoN.) IV FLUIDS: IV Saline Lock (23:14 12/01/2016 Maximilian EM) (23:21 Alfredo Cannon.N.) Solu-MEDROL IV 125 mg (NOW) (01:02 12/02/2016 Maximilian EM) (1:13 Alfredo Cannon.N.) LORazepam IV 0.5 mg + 0.5 iv (NOW) (02:16 12/02/2016 Maximilian EM) (Ack 2:17 Liam R.N.) (2:18 Liam R.N.) ORDER SHEET NOTES: [Electronically signed by Erin Borrego R.N. (06:40 12/02/2016)] [Electronically signed by Isidro De Guzman MD (12:45 12/03/2016)] [Electronically locked/signed by Erin Borrego R.N. (06:40 12/02/2016)]
--- NOTE | 2016-12-03 12:45 | ED CLINICAL REPORT ---
Clinical Report - Physicians/Mid Levels [facility] [address] [place] [address] 12/01/2016 22:25 Patient: YANDEL CALVO Time Seen: 23:04. Arrived- By private vehicle. HISTORY OF PRESENT ILLNESS Chief Complaint: DYSPNEA and VISION CHANGE AND SPEECH CHANGE. This started about 7 days ago dyspnea began. and is still present and worsening. It has been waxing/waning. The dyspnea is described as moderate. The dyspnea is worsened by being in a supine position and is improved with sitting upright. He has not had worsening of dyspnea with walking. The patient has had a cough productive of blood tinged sputum (yesterday mucus plug and some blood). He has had moderate amounts of brown, white sputum. There has not been a change from the baseline sputum. No fever, chills, dyspnea on exertion, chest pain or calf pain. He has experienced sweating episodes and had orthopnea. He has had right and left foot swelling (last week). He has had paroxysmal nocturnal dyspnea (with anxiety.). (About 10 days ago pt had a colonoscopy with biopsy. He was told to discontinue his aspirin. 5 days ago he noted decreased vision in R eye, This lasted for several hours returned to normal then was decreased for several more hours. Vision has been normal for 3-4 days. Speech was "slow and draggy" 2-3 days ago. The abnormal speech lasted a day or so. He had hard time balancing the checkbook this week. He also forgot his son's name today.). Recent medical care: The patient was seen recently by a health care provider. ( Gerard Hall scheduled possibly. Colonoscopy 1-2 weeks ago.). REVIEW OF SYSTEMS No eye irritation, sore throat or throat, nasal discharge or nausea. No vomiting, diarrhea, black stools or stools or headache. No difficulty with urination or urination, excessive urination or skin rash or rash. No enlarged lymph nodes, fever, muscle aches, ear pain or calf pain. No abdominal pain, bloody stools or weakness. The patient has had mild abdominal pain. The pain is described as located in the upper abdomen, joint pain (usual back pain),, decreased vision and pedal edema. He has had blurred vision in the right eye (resolved). The blurred vision involving the right eye has been severe. He has had a moderate cough productive of moderate amounts of sputum. It has been similar to previous symptoms. He has had back pain. It has been similar to previous symptoms. He has had altered mental status. (having trouble doing check book). He has had a right-sided headache (R temporal, mild and resolved.). No nausea or vomiting. All systems otherwise negative, except as recorded above. PAST HISTORY PCP: [facility] CABG 2002, Carotid on L, Bilateral femoral stents, Aortic stent. Anticoagulation. Illness: Problems: Renal Insufficiency. Atrial Fibrillation. Congestive Heart Failure. Parotitis. Cancer. Pancreatitis. Peripheral Arterial Occlusive Disease. Paresthesia. Peripheral Vascular Disease. Panic Attack. Anxiety Reaction. Hypercholesterolemia. Syncope. Coronary Artery Disease. COPD - Chronic Obstructive Pulmonary Disease. Hypertension. Chronic Back Pain. No history of congestive heart failure, deep venous thrombosis or pulmonary embolism. Medications: Alprazolam Oral 0.5 mg, as needed. Amoxicillin-Pot Clavulanate Oral (Tablet 500-125 mg) 1 tablet, 2x a day. Aspirin Oral (Tablet Chewable 81 mg) 1 tablet, daily. Combivent Inhalation. Crestor Oral (Tablet 10 mg) 1 tablet, daily. Cyclobenzaprine HCl Oral 10 mg, daily. Finasteride 5mg, daily. Hydrocodone-Acetaminophen Oral (Tablet 10-300 mg), 6x daily. Isosorbide Mononitrate Oral 30mg, daily. Lasix Oral (Tablet 40 mg) 1 tablet, daily. Lexapro Oral 10 mg, daily. Lisinopril Oral 20 mg, daily. Metoprolol Succinate ER Oral (Tablet Extended Release 24 Hour 200 mg) 1 tablet, daily. MiraLax. MiraLax Oral. Nitroglycerin Sublingual 0.4 mg, PRN. Nitrostat Sublingual. Protonix Oral (Tablet Delayed Release 40 mg) 1 tablet, daily. Pulmicort Inhalation. Q-daniel. Tamsulosin 0.4, daily. Tamsulosin HCl Oral 0.4 mg, daily. Venlafaxine HCl ER Oral. Venlafaxine HCl Oral 75 mg. Warfarin Sodium Oral 5 mg (F/S/M/W takes 6mg). Allergies: NKA. No Known Drug Allergy. SOCIAL HISTORY Former smoker. ADDITIONAL NOTES The nursing notes have been reviewed. PHYSICAL EXAM Vital Signs: 12/02/2016 00:59 BP: 109/62. HR: 60. RR: 18. O2 saturation: 96%. 12/02/2016 00:38 BP: 114/65. HR: 50. O2 saturation: 98%. FLACC pain scale: 11/26. 12/01/2016 23:20 BP: 105/61. HR: 58. RR: 16. O2 saturation: 95%. Pain level now: 02/26. 12/01/2016 22:40 BP: 117/81. HR: 56. RR: 18. O2 saturation: 94%. Temp: 97.9 F. Pain level now: 10/27. Appearance: Alert. No acute distress. Eyes: No pale conjunctivae. ENT: Pharynx normal. Neck: No carotid bruit. CVS: Abnormal rhythm, which is irregularly irregular. Respiratory: No respiratory distress. Mild bilateral wheezes posteriorly and in the bases. Moderate bilateral rhonchi present anteriorly, posteriorly and in the bases. No accessory muscle use or rales. Abdomen: Tenderness (ventral hernia - wide non-incarcerated). Skin: Skin warm. Normal skin color. Extremities: Bilateral 2+ edema of the lower extremities involving both feet, both ankles and both lower legs. Neuro: NIH Stroke Scale: score 0. Level of Consciousness: alert (0). LOC Questions: both (0). LOC Commands: both (0). Best gaze: normal (0). Visual field loss: none (0). Facial palsy: normal (0). Motor arm: no drift right arm (0) and no drift left arm (0). Motor leg: no drift right leg (0). Sensory loss: none (0). Aphasia: none (0). Dysarthria: normal (0). Extinction and inattention: none (0). LABS, X-RAYS, AND EKG EKG: No acute process. Rate: 62. Non-specific ST segment / T wave abnormalities. The study has been independently viewed by me. Chest X-ray: (Neg. except for L basilar atelectasis was present on 10/2015). The X-rays were independently viewed by me. CT Head: (Deep white matter R frontal lacunar infarcts. FINDINGS: Study limited by motion artifact. Streak artifact through the temporal and occipital lobe regions. Mild patchy hypodensity in the bilateral frontal lobe periventricular and subcortical white matter. Curvilinear focal hypodensity in the right frontal white matter tracts which new since the previous study. No intracranial hemorrhage or extraaxial fluid collections. Ventricles are normal in size, shape and position. There is no mass, mass effect or midline shift. The velasquez-white matter differentiation is normal. There is no edema. Moderate calcific atherosclerosis of the intracranial internal carotid arteries. The calvarium is intact. The paranasal sinuses and mastoid air cells are normally aerated. The extracranial soft tissues and orbits are normal. IMPRESSION: 1. No CT evidence of acute intracranial hemorrhage or edema. 2. Chronic microvascular ischemic changes with progression since the previous study, specifically right frontal white matter tract location. MRI (with sedation/antianxiety medication) is recommended. 3. Findings discussed with Dr. De Guzman at 03:[address] Lozano). Laboratory Tests: ESR: (ESTUARDO: 12/02/2016 00:01) ( [facility] 12/02/2016 01:29) Final results Test Result Flag Units (Reference) SED RATE WESTERGREN 22 H mm/hr (0-20) Lipase: (ESTUARDO: 12/02/2016 00:01) ( [facility] 12/02/2016 02:13) Final results Test Result Flag Units (Reference) LIPASE 103 U/L (73-393) CBC w Diff: (ESTUARDO: 12/01/2016 23:10) ( [facility] 12/01/2016 23:26) Final results Test Result Flag Units (Reference) WHITE BLOOD COUNT 7.4 K/uL (4.5-11.5) RED BLOOD COUNT 4.21 L M/uL (4.50-5.90) HEMOGLOBIN 13.0 L gm/dL (13.5-17.5) HEMATOCRIT 39.1 L % (41.0-53.0) MEAN CELL VOLUME 93 fL (80-100) MEAN CORPUSCULAR HGB 31 pg (26-34) MEAN CORPUSCULAR HGB CONC 33 g/dL (31-37) RED CELL DISTRIBUTION WIDTH 13.6 % (11.6-14.8) PLATELET COUNT 163 K/uL (150-400) LYMPH % 36.3 % (25-40) MONO % 3.2 % (3-14) GRANULOCYTE % 60.5 PT with INR: (ESTUARDO: 12/01/2016 23:10) ( [facility] 12/01/2016 23:37) Final results Test Result Flag Units (Reference) INR 4.8 H (0.8-1.2) Low Intensity Therapy: INR 1.5-2.0 PT range 18.5-23.1Mod.Intensity Therapy: INR 2.0-3.0 PT range 23.1-31.5High Intensity Therapy: INR 2.5-3.5 PT range 27.4-35.5High Intensity Therapy 2: INR 3.0-4.0 PT range 31.5-39.3 D-DIMER QUANTITATIVE < 0.27 L ug/mLFEU (0.27-0.52) The primary value of this quantitative assay relates toits negative predictive value (i.e. exclusion) of pulmonaryembolism/deep vein thrombosis/DIC.Elevated levels of d-dimer may also occur with:, age, cancer, inflammation, liver disease,post-op, infection, hematoma, coronary disease, peripheralarteriopathy, bleeding disorders and thrombolytic treatment.Results should be correlated with other clinical andradiological data.Testing Methodology: Latex Immunoassay BNP: (ESTUARDO: 12/01/2016 23:10) ( [facility] 12/01/2016 23:41) Final results Test Result Flag Units (Reference) B-TYPE NATRIURETIC PEPTIDE 138 H pg/ml (5-100) CHEM 13 PANEL: (ESTUARDO: 12/01/2016 23:10) ( [facility] 12/01/2016 23:40) Final results Test Result Flag Units (Reference) GLUCOSE 114 H mg/dL (70-110) BUN 23 H mg/dL (7-18) CREATININE 1.3 mg/dL (0.6-1.3) Estimated GFR 58.17 mL/min Estimated GFR- >60 mL/min Note: Persistent reduction over 3 months in eGFR<60 mL/min/1.73 m2 defines CKD. Patients with eGFR values>=60 mL/min/1.73 m2 may also have CKD if evidence ofpersistent proteinuria. Additional information may be foundat www.kidney.org. SODIUM 144 mmol/L (136-145) POTASSIUM 4.0 mmol/L (3.5-5.1) CHLORIDE 108 H mmol/L (98-107) CARBON DIOXIDE 29 mmol/L (21-32) CALCIUM 8.8 mg/dL (8.5-10.1) TOTAL PROTEIN 7.0 g/dL (6.4-8.2) ALBUMIN 3.5 g/dL (3.3-5.0) BILIRUBIN, TOTAL 0.3 mg/dL (0.0-1.0) ALKALINE PHOSPHATASE 71 U/L (46-116) AST (SGOT) 19 U/L (15-37) ALT (SGPT) 23 U/L (12-78) MAGNESIUM 2.2 mg/dL (1.8-2.4) CPK 179 U/L (24-260) TROPONIN I <0.05 L ng/mL (0.00-1.5) TROPONIN REFERENCE RANGE:<0.1 NEGATIVE0.1-1.5 INDETERMINANT>1.5 POSITIVE . PROGRESS AND PROCEDURES Course of Care: Pre test DDX: CHF, Pneumonia. Less likely ACS Post Test: COPD exacerbation. CVA or crescendo TIA, (amaurosis fugax), temporal arteritis Supratherputic INR. 4.8 Had difficulty with the head CT because of "claustrophobia" 01:54 12/02/16. Fairly anxious, receiving a breathing treatment of Albuterol HHN x 3 units. and solumedrol. Peak flow pre 180, peak flow post treatment 200. 02:04 12/02/16. ESR 22. Temporal arteritis is not likely. 02:17 12/02/16. RA 02 Sat is 89-91% 02:49 12/02/16. Discussed transfer with Loyda, Bed Pull Up Hand, at [facility]. She will ask Dr Angel to call. 03:11 12/02/16. Call to son Andrés. 03:37 12/02/16. Dr Hill returns the call and declined admission to [facility]. "We have no neurology." 03:38 12/02/16. Page to [place] hospitalist. [place] has no beds. At this point trying to get hospitalization more out of his system further than [facility] or [facility] will fragment his care to an impossible degree. I will try to optimize his his pulmonary care and try to get him to his Dr tomorrow. 03:50 12/02/16. Juan Antonio Nursing Pull Up Hand at [place] confirms no beds available in known interval. For now will ensure Q4 hr Albuterol HHN 04:46 12/02/16. [place] system living supervisor may have a bed at [facility]. She will have Dr Perez contact me. No beds [facility]ie [facility] 05:05 12/02/16. Cierra tells me to call after 730. No bed currently. 05:20 12/02/16. [facility] and Federico Ribera MD at [facility] agree to receive patient. Now arraigning ALS ground, pushing CT and CXR. Neuro exam unchanged. Lungs clearer following steroids and albuterol 05:51 12/02/16. Transfer form completed. Son and patient informed. 05:54 12/02/16. Reviewing the 02 sats recorded in the medical record they a are run 94 or better% In my frequent visits to re-examine the patient the 02 sats were 88% on RA and 89 to 91% on 2 liters. These have a good wave form. The disparity between my observed 02 sats and the recorded 02 sats is not clear to me. 12/02/2016 05:00 BP: 108/77. HR: 55. RR: 18. O2 saturation: 94%. Pain level now: 08/29. 12/02/2016 04:39 BP: 132/75. HR: 64. RR: 16. O2 saturation: 95%. Pain level now: 08/29. 12/02/2016 03:45 BP: 121/65. HR: 60. RR: 16. O2 saturation: 94%. Pain level now: 0. 12/02/2016 03:00 BP: 119/65. HR: 70. RR: 16. O2 saturation: 93%. Pain level now: . 12/02/2016 02:30 BP: 139/91. HR: 70. RR: 18. O2 saturation: 90%. Pain level now: 08/29. 12/02/2016 01:34 BP: 132/76. HR: 69. RR: 18. O2 saturation: 95%. Pain level now: . 12/02/2016 00:59 BP: 109/62. HR: 60. RR: 18. O2 saturation: 96%. 12/02/2016 00:38 BP: 114/65. HR: 50. O2 saturation: 98%. FLACC pain scale: 11/26. 12/01/2016 23:20 BP: 105/61. HR: 58. RR: 16. O2 saturation: 95%. Pain level now: 02/26. 12/01/2016 22:40 BP: 117/81. HR: 56. RR: 18. O2 saturation: 94%. Temp: 97.9 F. Pain level now: 10. Stroke risk after TIA (ABCD2 score): Score: 4 (moderate risk of stroke at 2, 7 and 90 days). Age 60 years or greater, speech disturbance without weakness and TIA duration greater than or equal to 60 minutes. Disposition: Transferred. CLINICAL IMPRESSION CRESCENDO TIA ACUTE DYSPNEA COPD EXACERBATION with HYPOXEMIA SEVERE VASCULAR DISEASE ATRIAL FIBRILLATION SUPRATHERAPUTIC INR ANXIETY AND CLAUSTROPHOBIA. (Electronically signed by Isidro De Guzman MD 12/03/2016 12:45)
--- NOTE | 2016-12-03 12:45 | ED CLINICAL REPORT ---
Clinical Report - Physicians/Mid Levels [facility] [address] [place] [address] 12/01/2016 22:25 Patient: YANDEL CALVO Time Seen: 23:04. Arrived- By private vehicle. HISTORY OF PRESENT ILLNESS Chief Complaint: DYSPNEA and VISION CHANGE AND SPEECH CHANGE. This started about 7 days ago dyspnea began. and is still present and worsening. It has been waxing/waning. The dyspnea is described as moderate. The dyspnea is worsened by being in a supine position and is improved with sitting upright. He has not had worsening of dyspnea with walking. The patient has had a cough productive of blood tinged sputum (yesterday mucus plug and some blood). He has had moderate amounts of brown, white sputum. There has not been a change from the baseline sputum. No fever, chills, dyspnea on exertion, chest pain or calf pain. He has experienced sweating episodes and had orthopnea. He has had right and left foot swelling (last week). He has had paroxysmal nocturnal dyspnea (with anxiety.). (About 10 days ago pt had a colonoscopy with biopsy. He was told to discontinue his aspirin. 5 days ago he noted decreased vision in R eye, This lasted for several hours returned to normal then was decreased for several more hours. Vision has been normal for 3-4 days. Speech was "slow and draggy" 2-3 days ago. The abnormal speech lasted a day or so. He had hard time balancing the checkbook this week. He also forgot his son's name today.). Recent medical care: The patient was seen recently by a health care provider. ( Gerard Hall scheduled possibly. Colonoscopy 1-2 weeks ago.). REVIEW OF SYSTEMS No eye irritation, sore throat or throat, nasal discharge or nausea. No vomiting, diarrhea, black stools or stools or headache. No difficulty with urination or urination, excessive urination or skin rash or rash. No enlarged lymph nodes, fever, muscle aches, ear pain or calf pain. No abdominal pain, bloody stools or weakness. The patient has had mild abdominal pain. The pain is described as located in the upper abdomen, joint pain (usual back pain),, decreased vision and pedal edema. He has had blurred vision in the right eye (resolved). The blurred vision involving the right eye has been severe. He has had a moderate cough productive of moderate amounts of sputum. It has been similar to previous symptoms. He has had back pain. It has been similar to previous symptoms. He has had altered mental status. (having trouble doing check book). He has had a right-sided headache (R temporal, mild and resolved.). No nausea or vomiting. All systems otherwise negative, except as recorded above. PAST HISTORY PCP: [facility] CABG 2002, Carotid on L, Bilateral femoral stents, Aortic stent. Anticoagulation. Illness: Problems: Renal Insufficiency. Atrial Fibrillation. Congestive Heart Failure. Parotitis. Cancer. Pancreatitis. Peripheral Arterial Occlusive Disease. Paresthesia. Peripheral Vascular Disease. Panic Attack. Anxiety Reaction. Hypercholesterolemia. Syncope. Coronary Artery Disease. COPD - Chronic Obstructive Pulmonary Disease. Hypertension. Chronic Back Pain. No history of congestive heart failure, deep venous thrombosis or pulmonary embolism. Medications: Alprazolam Oral 0.5 mg, as needed. Amoxicillin-Pot Clavulanate Oral (Tablet 500-125 mg) 1 tablet, 2x a day. Aspirin Oral (Tablet Chewable 81 mg) 1 tablet, daily. Combivent Inhalation. Crestor Oral (Tablet 10 mg) 1 tablet, daily. Cyclobenzaprine HCl Oral 10 mg, daily. Finasteride 5mg, daily. Hydrocodone-Acetaminophen Oral (Tablet 10-300 mg), 6x daily. Isosorbide Mononitrate Oral 30mg, daily. Lasix Oral (Tablet 40 mg) 1 tablet, daily. Lexapro Oral 10 mg, daily. Lisinopril Oral 20 mg, daily. Metoprolol Succinate ER Oral (Tablet Extended Release 24 Hour 200 mg) 1 tablet, daily. MiraLax. MiraLax Oral. Nitroglycerin Sublingual 0.4 mg, PRN. Nitrostat Sublingual. Protonix Oral (Tablet Delayed Release 40 mg) 1 tablet, daily. Pulmicort Inhalation. Q-daniel. Tamsulosin 0.4, daily. Tamsulosin HCl Oral 0.4 mg, daily. Venlafaxine HCl ER Oral. Venlafaxine HCl Oral 75 mg. Warfarin Sodium Oral 5 mg (F/S/M/W takes 6mg). Allergies: NKA. No Known Drug Allergy. SOCIAL HISTORY Former smoker. ADDITIONAL NOTES The nursing notes have been reviewed. PHYSICAL EXAM Vital Signs: 12/02/2016 00:59 BP: 109/62. HR: 60. RR: 18. O2 saturation: 96%. 12/02/2016 00:38 BP: 114/65. HR: 50. O2 saturation: 98%. FLACC pain scale: 11/26. 12/01/2016 23:20 BP: 105/61. HR: 58. RR: 16. O2 saturation: 95%. Pain level now: 02/26. 12/01/2016 22:40 BP: 117/81. HR: 56. RR: 18. O2 saturation: 94%. Temp: 97.9 F. Pain level now: 10/27. Appearance: Alert. No acute distress. Eyes: No pale conjunctivae. ENT: Pharynx normal. Neck: No carotid bruit. CVS: Abnormal rhythm, which is irregularly irregular. Respiratory: No respiratory distress. Mild bilateral wheezes posteriorly and in the bases. Moderate bilateral rhonchi present anteriorly, posteriorly and in the bases. No accessory muscle use or rales. Abdomen: Tenderness (ventral hernia - wide non-incarcerated). Skin: Skin warm. Normal skin color. Extremities: Bilateral 2+ edema of the lower extremities involving both feet, both ankles and both lower legs. Neuro: NIH Stroke Scale: score 0. Level of Consciousness: alert (0). LOC Questions: both (0). LOC Commands: both (0). Best gaze: normal (0). Visual field loss: none (0). Facial palsy: normal (0). Motor arm: no drift right arm (0) and no drift left arm (0). Motor leg: no drift right leg (0). Sensory loss: none (0). Aphasia: none (0). Dysarthria: normal (0). Extinction and inattention: none (0). LABS, X-RAYS, AND EKG EKG: No acute process. Rate: 62. Non-specific ST segment / T wave abnormalities. The study has been independently viewed by me. Chest X-ray: (Neg. except for L basilar atelectasis was present on 10/2015). The X-rays were independently viewed by me. CT Head: (Deep white matter R frontal lacunar infarcts. FINDINGS: Study limited by motion artifact. Streak artifact through the temporal and occipital lobe regions. Mild patchy hypodensity in the bilateral frontal lobe periventricular and subcortical white matter. Curvilinear focal hypodensity in the right frontal white matter tracts which new since the previous study. No intracranial hemorrhage or extraaxial fluid collections. Ventricles are normal in size, shape and position. There is no mass, mass effect or midline shift. The velasquez-white matter differentiation is normal. There is no edema. Moderate calcific atherosclerosis of the intracranial internal carotid arteries. The calvarium is intact. The paranasal sinuses and mastoid air cells are normally aerated. The extracranial soft tissues and orbits are normal. IMPRESSION: 1. No CT evidence of acute intracranial hemorrhage or edema. 2. Chronic microvascular ischemic changes with progression since the previous study, specifically right frontal white matter tract location. MRI (with sedation/antianxiety medication) is recommended. 3. Findings discussed with Dr. De Guzman at 03:[address] Lozano). Laboratory Tests: ESR: (ESTUARDO: 12/02/2016 00:01) ( [facility] 12/02/2016 01:29) Final results Test Result Flag Units (Reference) SED RATE WESTERGREN 22 H mm/hr (0-20) Lipase: (ESTUARDO: 12/02/2016 00:01) ( [facility] 12/02/2016 02:13) Final results Test Result Flag Units (Reference) LIPASE 103 U/L (73-393) CBC w Diff: (ESTUARDO: 12/01/2016 23:10) ( [facility] 12/01/2016 23:26) Final results Test Result Flag Units (Reference) WHITE BLOOD COUNT 7.4 K/uL (4.5-11.5) RED BLOOD COUNT 4.21 L M/uL (4.50-5.90) HEMOGLOBIN 13.0 L gm/dL (13.5-17.5) HEMATOCRIT 39.1 L % (41.0-53.0) MEAN CELL VOLUME 93 fL (80-100) MEAN CORPUSCULAR HGB 31 pg (26-34) MEAN CORPUSCULAR HGB CONC 33 g/dL (31-37) RED CELL DISTRIBUTION WIDTH 13.6 % (11.6-14.8) PLATELET COUNT 163 K/uL (150-400) LYMPH % 36.3 % (25-40) MONO % 3.2 % (3-14) GRANULOCYTE % 60.5 PT with INR: (ESTUARDO: 12/01/2016 23:10) ( [facility] 12/01/2016 23:37) Final results Test Result Flag Units (Reference) INR 4.8 H (0.8-1.2) Low Intensity Therapy: INR 1.5-2.0 PT range 18.5-23.1Mod.Intensity Therapy: INR 2.0-3.0 PT range 23.1-31.5High Intensity Therapy: INR 2.5-3.5 PT range 27.4-35.5High Intensity Therapy 2: INR 3.0-4.0 PT range 31.5-39.3 D-DIMER QUANTITATIVE < 0.27 L ug/mLFEU (0.27-0.52) The primary value of this quantitative assay relates toits negative predictive value (i.e. exclusion) of pulmonaryembolism/deep vein thrombosis/DIC.Elevated levels of d-dimer may also occur with:, age, cancer, inflammation, liver disease,post-op, infection, hematoma, coronary disease, peripheralarteriopathy, bleeding disorders and thrombolytic treatment.Results should be correlated with other clinical andradiological data.Testing Methodology: Latex Immunoassay BNP: (ESTUARDO: 12/01/2016 23:10) ( [facility] 12/01/2016 23:41) Final results Test Result Flag Units (Reference) B-TYPE NATRIURETIC PEPTIDE 138 H pg/ml (5-100) CHEM 13 PANEL: (ESTUARDO: 12/01/2016 23:10) ( [facility] 12/01/2016 23:40) Final results Test Result Flag Units (Reference) GLUCOSE 114 H mg/dL (70-110) BUN 23 H mg/dL (7-18) CREATININE 1.3 mg/dL (0.6-1.3) Estimated GFR 58.17 mL/min Estimated GFR- >60 mL/min Note: Persistent reduction over 3 months in eGFR<60 mL/min/1.73 m2 defines CKD. Patients with eGFR values>=60 mL/min/1.73 m2 may also have CKD if evidence ofpersistent proteinuria. Additional information may be foundat www.[email or web address].org. SODIUM 144 mmol/L (136-145) POTASSIUM 4.0 mmol/L (3.5-5.1) CHLORIDE 108 H mmol/L (98-107) CARBON DIOXIDE 29 mmol/L (21-32) CALCIUM 8.8 mg/dL (8.5-10.1) TOTAL PROTEIN 7.0 g/dL (6.4-8.2) ALBUMIN 3.5 g/dL (3.3-5.0) BILIRUBIN, TOTAL 0.3 mg/dL (0.0-1.0) ALKALINE PHOSPHATASE 71 U/L (46-116) AST (SGOT) 19 U/L (15-37) ALT (SGPT) 23 U/L (12-78) MAGNESIUM 2.2 mg/dL (1.8-2.4) CPK 179 U/L (24-260) TROPONIN I <0.05 L ng/mL (0.00-1.5) TROPONIN REFERENCE RANGE:<0.1 NEGATIVE0.1-1.5 INDETERMINANT>1.5 POSITIVE . PROGRESS AND PROCEDURES Course of Care: Pre test DDX: CHF, Pneumonia. Less likely ACS Post Test: COPD exacerbation. CVA or crescendo TIA, (amaurosis fugax), temporal arteritis Supratherputic INR. 4.8 Had difficulty with the head CT because of "claustrophobia" 01:54 12/02/16. Fairly anxious, receiving a breathing treatment of Albuterol HHN x 3 units. and solumedrol. Peak flow pre 180, peak flow post treatment 200. 02:04 12/02/16. ESR 22. Temporal arteritis is not likely. 02:17 12/02/16. RA 02 Sat is 89-91% 02:49 12/02/16. Discussed transfer with Loyda, Bed Fleecer, at [facility]. She will ask Dr Angel to call. 03:11 12/02/16. Call to son Andrés. 03:37 12/02/16. Dr Hill returns the call and declined admission to [facility]. "We have no neurology." 03:38 12/02/16. Page to [facility] hospitalist. [facility] has no beds. At this point trying to get hospitalization more out of his system further than [facility] or [facility] will fragment his care to an impossible degree. I will try to optimize his his pulmonary care and try to get him to his Dr tomorrow. 03:50 12/02/16. Juan Antonio Nursing Fleecer at [facility] confirms no beds available in known interval. For now will ensure Q4 hr Albuterol HHN 04:46 12/02/16. [facility] system silverware supervisor may have a bed at [facility]. She will have Dr Perez contact me. No beds [facility] 05:05 12/02/16. Cierra tells me to call after 730. No bed currently. 05:20 12/02/16. [facility] and Federico Ribera [facility] at [facility] [place]. Now arraigning ALS ground, pushing CT and CXR. Neuro exam unchanged. Lungs clearer following steroids and albuterol 05:51 12/02/16. Transfer form completed. Son and patient informed. 05:54 12/02/16. Reviewing the 02 sats recorded in the medical record they a are run 94 or better% In my frequent visits to re-examine the patient the 02 sats were 88% on RA and 89 to 91% on 2 liters. These have a good wave form. The disparity between my observed 02 sats and the recorded 02 sats is not clear to me. 12/02/2016 05:00 BP: 108/77. HR: 55. RR: 18. O2 saturation: 94%. Pain level now: 08/29. 12/02/2016 04:39 BP: 132/75. HR: 64. RR: 16. O2 saturation: 95%. Pain level now: 08/29. 12/02/2016 03:45 BP: 121/65. HR: 60. RR: 16. O2 saturation: 94%. Pain level now: 0. 12/02/2016 03:00 BP: 119/65. HR: 70. RR: 16. O2 saturation: 93%. Pain level now: . 12/02/2016 02:30 BP: 139/91. HR: 70. RR: 18. O2 saturation: 90%. Pain level now: 08/29. 12/02/2016 01:34 BP: 132/76. HR: 69. RR: 18. O2 saturation: 95%. Pain level now: . 12/02/2016 00:59 BP: 109/62. HR: 60. RR: 18. O2 saturation: 96%. 12/02/2016 00:38 BP: 114/65. HR: 50. O2 saturation: 98%. FLACC pain scale: 11/26. 12/01/2016 23:20 BP: 105/61. HR: 58. RR: 16. O2 saturation: 95%. Pain level now: 02/26. 12/01/2016 22:40 BP: 117/81. HR: 56. RR: 18. O2 saturation: 94%. Temp: 97.9 F. Pain level now: 10. Stroke risk after TIA (ABCD2 score): Score: 4 (moderate risk of stroke at 2, 7 and 90 days). Age 60 years or greater, speech disturbance without weakness and TIA duration greater than or equal to 60 minutes. Disposition: Transferred. CLINICAL IMPRESSION CRESCENDO TIA ACUTE DYSPNEA COPD EXACERBATION with HYPOXEMIA SEVERE VASCULAR DISEASE ATRIAL FIBRILLATION SUPRATHERAPUTIC INR ANXIETY AND CLAUSTROPHOBIA. (Electronically signed by Isidro De Guzman MD 12/03/2016 12:45)
--- NOTE | 2016-12-03 12:45 | ED MED RECONCILIATION SUMMARY ---
Patient: YANDEL CALVO Medication Reconciliation Report [facility] VisitID: [id number] [place] [address] 71y, M Registration Date/Time: 12/01/2016 Weight: 113.3 kg Height/Length: 76 in. BMI: 30.4 ALLERGIES: NKA, No Known Drug Allergy The patient's Home Medications are listed below: THE FOLLOWING MEDICATIONS NEED TO BE RECONCILED: Alprazolam Oral 0.5 mg Amoxicillin-Pot Clavulanate Oral (500-125 mg) 1 tablet, 2x a day Aspirin Oral (81 mg) 1 tablet, daily Combivent Inhalation Crestor Oral (10 mg) 1 tablet, daily Cyclobenzaprine HCl Oral 10 mg, daily Finasteride 5mg, daily Hydrocodone-Acetaminophen Oral (10-300 mg), 6x daily Isosorbide Mononitrate Oral 30mg, daily Lasix Oral (40 mg) 1 tablet, daily Lexapro Oral 10 mg, daily Lisinopril Oral 20 mg, daily Metoprolol Succinate ER Oral (200 mg) 1 tablet, daily MiraLax MiraLax Oral Nitroglycerin Sublingual 0.4 mg, PRN Nitrostat Sublingual Protonix Oral (40 mg) 1 tablet, daily Pulmicort Inhalation Q-daniel Tamsulosin 0.4, daily Tamsulosin HCl Oral 0.4 mg, daily Venlafaxine HCl ER Oral Venlafaxine HCl Oral 75 mg Warfarin Sodium Oral 5 mg, F/S/M/W takes 6mg The source(s) of the original Home Medication information: Not obtained. The following Medications were given to the patient in the Emergency Department: Percocet [PO] PO 2 tab, administered: 12/02/2016 1:11:00 AM SOLU-MEDROL [IVP] IVP 125 mg, administered: 12/02/2016 1:13:00 AM Lorazepam [IVP] IVP 0.5 mg, administered: 12/02/2016 1:58:00 AM Albuterol [Neb Tx] Neb TX 3 unit dose, administered: 12/02/2016 1:45:00 AM Lorazepam [IVP] IVP 0.5 mg, administered: 12/02/2016 2:30:00 AM Prednisone [PO] PO 60 mg, administered: 12/02/2016 5:30:00 AM Albuterol [Neb Tx] Neb TX 1 unit dose, administered: 12/02/2016 5:49:00 AM The following Medications were prescribed to the patient: None.
--- NOTE | 2016-12-03 12:45 | ED NURSING NOTES ---
Clinical Report - Nurses [address] [place] [address] 12/01/2016 22:25 Patient: YANDEL CALVO TRIAGE Triage time 22:40. Acuity: LEVEL 3. Chief Complaint: SHORTNESS OF BREATH. --22:43 Jeff Mark 22:40 12/01/16. BP: 117/81. HR: 56. RR: 18. O2 saturation: 94%. Temp: 97.9 F. Pain level now: 10/27. --22:43 Jeff Mark Weight: 113.3 kg. Height/Length: 76 inches. BMI: 30.4. --22:43 Jeff Mark Medications Alprazolam Oral 0.5 mg, as needed. Amoxicillin-Pot Clavulanate Oral (Tablet 500-125 mg) 1 tablet, 2x a day. Aspirin Oral (Tablet Chewable 81 mg) 1 tablet, daily. Combivent Inhalation. Crestor Oral (Tablet 10 mg) 1 tablet, daily. Cyclobenzaprine HCl Oral 10 mg, daily. Finasteride 5mg, daily. Hydrocodone-Acetaminophen Oral (Tablet 10-300 mg), 6x daily. Isosorbide Mononitrate Oral 30mg, daily. Lasix Oral (Tablet 40 mg) 1 tablet, daily. Lexapro Oral 10 mg, daily. Lisinopril Oral 20 mg, daily. Metoprolol Succinate ER Oral (Tablet Extended Release 24 Hour 200 mg) 1 tablet, daily. MiraLax. MiraLax Oral. Nitroglycerin Sublingual 0.4 mg, PRN. Nitrostat Sublingual. Protonix Oral (Tablet Delayed Release 40 mg) 1 tablet, daily. Pulmicort Inhalation. Q-daniel. Tamsulosin 0.4, daily. Tamsulosin HCl Oral 0.4 mg, daily. Venlafaxine HCl ER Oral. Venlafaxine HCl Oral 75 mg. Warfarin Sodium Oral 5 mg (F/S/M/W takes 6mg). --23:11 TonyaB, R.N. Allergies NKA. No Known Drug Allergy. --23:11 Dayo Mark. History Arrived by private vehicle. Historian: patient. ( pt also complains of back pain). This started yesterday. He has had a cough and back pain. 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 PAST MEDICAL HX: Immunizations: up-to-date. SOCIAL HX: Smoker- current status unknown (former smoker). History of drug use: marijuana. Recently used drugs today. No alcohol use. No infectious disease exposure. SELF HARM ASSESSMENT: A self harm assessment was performed. The patient answered "no" to the question "Have you recently felt down, depressed, or hopeless?", "Have you noticed less interest or pleasure in doing things?", "Do you have thoughts of harming or killing yourself?", "Are you here because you tried to hurt yourself?", "Have you ever tried to hurt yourself before today?", "Have you recently had thoughts about harming or killing others?" and "Do you have any dangerous items in your possession?". FALL RISK ASSESSMENT: Fall risk assessment completed. No fall risk identified. NUTRITIONAL RISK ASSESSMENT: The nutritional risk assessment revealed no deficiencies. FUNCTIONAL ASSESSMENT: Functional assessment: no impairments noted. LEARNING NEEDS ASSESSMENT: The learning needs assessment revealed no barriers. SKIN INTEGRITY ASSESSMENT: Skin integrity risk assessment completed. No skin integrity risk identified. --22:43 Dayo Mark. PROBLEMS: Head Injury. Headache. Weakness. Renal Insufficiency. Atrial Fibrillation. Congestive Heart Failure. Pedal Edema. Stomach Cancer. Parotitis. Dysphagia. GI Disease. Hypoxia. Cancer. Vomiting. Pancreatitis. Peripheral Arterial Occlusive Disease. Paresthesia. Peripheral Vascular Disease. Constipation. Panic Attack. Anxiety Reaction. Back Injury. Biliary Colic. Intervertebral Disc Disease. Animal Bite. Cellulitis. Hypercholesterolemia. Chest Pain. Syncope. Coronary Artery Disease. COPD - Chronic Obstructive Pulmonary Disease. Hypertension. Chronic Back Pain. Immunizations. --23:12 Dayo Mark. Gastritis [RuleOut]. Abdominal Pain [RuleOut]. --23:12 Dayo Mark. ADDITIONAL SURGERIES: Aortic stent placement . Appendectomy. Carotid Surgery. Cholecystectomy. Colonoscopy. Coronary Angioplasty. Coronary Artery Bypass Graft. Endoscopy. Femoral artery stents. Inguinal Hernia Repair. Peripheral Vascular Surgery. Polyp Removal (stomach). --23:12 Jeff Mark Interventions ID band on patient. To treatment room. --22:43 Jeff Mark PHYSICAL ASSESSMENT Ambulatory to room. GENERAL / NEURO / PSYCH: Alert. Oriented X 4. Appears in no acute distress. HEENT: Mucous membranes are pink. RESPIRATORY: No respiratory distress. Respirations not labored. Chest nontender. Breath sounds within normal limits. CVS: Normal sinus rhythm noted. Capillary refill less than 2 seconds. GI / : Abdomen soft and nontender. Bowel sounds within normal limits. SKIN: Skin is warm and dry. Normal skin turgor. --22:44 Jeff Mark NURSING PROGRESS NOTES Pulse oximeter and NIBP monitor placed on patient. Patient gowned. Patient identifiers checked. Call light placed in reach. Side rails up x 1. Bed placed in lowest position. Brakes of bed on. --22:44 Jeff Mark Reassessment after oxygen administered. He is resting quietly. --23:02 Jeff Mark 23:13 12/01/2016 Site #1 started via IV in the left antecubital space with an 20g angiocath; one attempt. Blood drawn: rainbow set. Labeled in the presence of the patient and sent to the lab. Saline lock flushed with 10 mL saline. --23:13 Jeff Mark Care transferred and report received (from AYAAN Santizo). --23:18 Harrison Moseley R.N. 23:20 12/01/16. BP: 105/61. HR: 58. RR: 16. O2 saturation: 95% on nasal cannula at 2 liters/minute. Pain level now: 02/26. --23:21 Harrison Moseley R.N. ( Pt in room, resting quietly, monitoring 02 status, Pt on 2L nasal cannula.). --23:21 Harrison Moseley R.N. ( report given to Harrison). --23:25 Jeff Mark EKG time: (2325 PM). EKG was ordered, performed by a tech and shown to the ED physician. --23:26 Silvana Gurrola 00:38 12/02/16. BP: 114/65. HR: 50. O2 saturation: 98% on nasal cannula at 2 liters/minute. FLACC pain scale: 5/10. --00:38 Harrison Moseley R.N. 00:59 12/02/16. BP: 109/62. HR: 60. RR: 18. O2 saturation: 96% on nasal cannula at 2 liters/minute. --00:59 Harrison Moseley R.N. ( MD in talking with Pt, Pt appears to be in no acute distress, VSS.). --00:59 Harrison Moseley R.N. 01:11 12/02/2016 Percocet (Oxycodone-Acetaminophen) PO 5/325 mg Tablets 2 tab given. Allergies verified, confirmed 5 rights and sedative warning given to the patient. --01:11 Harrison Moseley R.N. 01:13 12/02/2016 SOLU-MEDROL (MethylPREDNISolone Sodium Succ) IVP 125 mg given over 2 minute(s) via site #1. Allergies verified and confirmed 5 rights. IV patency established. IV site checked: no pain, redness, or swelling. IV flushed thoroughly pre- and post-medication administration. IVP given by RN. --01:13 Harrison Moseley R.N. Patient transported to MD by stretcher with [employer]. --01:17 Harrison Moseley R.N. ( Pt at MD and is c/o of claustrophobia, MD called to CT.). --01:22 Harrison Moseley R.N. Care transferred and report given (to AYAAN Khan). --01:22 Harrison Moseley R.N. Patient returned from MD by stretcher with tech. (01:38). --01:38 Erin Borrego R.N. 01:34 12/02/16. BP: 132/76 taken on the left arm, while sitting. HR: 69 (regular and normal rate). RR: 18. O2 saturation: 95% on nasal cannula at 2 liters/minute. Temp: deferred. Pain level now: 0/10. --01:38 Erin Borrego R.N. ( pt sitting up on gurney, RT at bedside for breathing TX, VSS will continue to monitor). GENERAL / NEURO / PSYCH: The patient reports anxiety is still present and currently moderate in severity. RESPIRATORY: The patient reports difficulty breathing is still present and currently moderate in severity. --01:40 Erin Borrego R.N. 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 --01:40 Erin Borrego R.N. 01:45 12/02/2016 Albuterol Neb TX Nebulizer 3 unit dose given. Given by the respiratory therapist. Allergies verified and confirmed 5 rights. (given by RT). --02:35 Erin Borrego R.N. 01:58 12/02/2016 Lorazepam (LORazepam) IVP 0.5 mg given over 1 minute(s) via site #1. Allergies verified, confirmed 5 rights and sedative warning given to the patient. IV patency established. IV site checked: no pain, redness, or swelling. IV flushed thoroughly pre- and post-medication administration. IVP given by RN. --02:18 Erin Borrego R.N. 02:30 12/02/2016 Lorazepam (LORazepam) IVP 0.5 mg given over 1 minute(s) via site #1. Allergies verified, confirmed 5 rights and sedative warning given to the patient. IV patency established. IV site checked: no pain, redness, or swelling. IV flushed thoroughly pre- and post-medication administration. IVP given by RN. --02:35 Erin Borrego R.N. GENERAL / NEURO / PSYCH: The patient reports anxiety is still present but improving and currently mild in severity. SKIN: Skin is warm and dry. Skin color within normal limits. --02:38 Erin Borrego R.N. 02:30 12/02/16. BP: 139/91 taken on the left arm, while sitting. HR: 70 (regular and normal rate). RR: 18 (regular and unlabored). O2 saturation: 90% on nasal cannula at 2 liters/minute. Temp: deferred. Pain level now: 08/29. --02:38 Erin Borrego R.N. 03:00 12/02/16. BP: 119/65 taken on the left arm, while lying. HR: 70 (regular and normal rate). RR: 16 (regular and unlabored). O2 saturation: 93% on nasal cannula at 3 liters/minute. Temp: deferred. Pain level now: 0/10. --03:18 Erin Borrego R.N. Reassessment after medication administered (ativan). He is resting quietly. Overall patient status is improved. RESPIRATORY: No respiratory distress. --03:18 Erin Borrego R.N. Overall patient status is the same- he states feels the same. ( pt resting, VSS, no distress at this time. will continue to monitor). --03:48 Erin Borrego R.N. 03:45 12/02/16. BP: 121/65. HR: 60 (irregular and normal rate). RR: 16 (regular and unlabored). O2 saturation: 94% on nasal cannula at 3 liters/minute. Temp: deferred. Pain level now: 0/10. --03:48 Erin Borrego R.N. Reassessment after oxygen administered. He is sleeping. Overall patient status is the same. ( pt resting on right side, given warm blanket and pt is positions for comfort.). RESPIRATORY: The patient reports difficulty breathing that is mild in severity. --04:42 Erin Borrego R.N. 04:39 12/02/16. BP: 132/75 (regular adult cuff) taken on the right arm, while lying. HR: 64 (regular and normal rate). RR: 16 (regular and unlabored). O2 saturation: 95% on nasal cannula at 3 liters/minute. Temp: deferred. Pain level now: 2/10. --04:42 Erin Borrego R.N. Two patient identifiers checked. Call light placed in reach of patient. Side rails up x 2. Bed placed in lowest position. Brakes of bed on. --04:42 Erin Borrego R.N. 05:00 12/02/16. BP: 108/77. HR: 55. RR: 18. O2 saturation: 94% on nasal cannula at 2 liters/minute. Temp: deferred. Pain level now: 08/29. --05:09 Erin Borrego R.N. The patient is sleeping. Overall patient status is the same- he states feels the same. CVS: Normal sinus rhythm noted. Cardiac rhythm: sinus bradycardia; (55). SKIN: Skin is warm and dry. Skin color within normal limits. --05:09 Erin Borrego R.N. 02:05 12/02/2016 Albuterol Neb TX discontinued due to improvement in patient condition. --05:28 Erin Borrego R.N. 05:30 12/02/2016 Prednisone PO Tablets 60 mg given. Allergies verified and confirmed 5 rights. --05:33 Erin Borrego R.N. 05:49 12/02/2016 Albuterol Neb TX Nebulizer 1 unit dose given. Given by the respiratory therapist. Allergies verified and confirmed 5 rights. --05:51 Erin Borrego R.N. The patient is resting quietly. Overall patient status is the same- he states feels the same. SKIN: Skin is warm and dry. --05:53 Erin Borrego R.N. 05:45 12/02/16. BP: 115/59 (regular adult cuff) taken on the right arm, while lying. HR: 63 (irregular and normal rate). RR: 16 (regular and unlabored). O2 saturation: 95% on nasal cannula at 3 liters/minute. Temp: 97.8 F (oral). Pain level now: 08/29. --05:53 Erin Borrego R.N. RESPIRATORY: Decreased breath sounds in the bases bilaterally (O2 sats 90% on 3L post albuterol treatment). --06:03 Erin Borrego R.N. 06:00 12/02/16. BP: 137/79 (regular adult cuff) taken on the right arm, while lying. HR: 68 (irregular and normal rate). RR: 16. O2 saturation: 91% on nasal cannula at 3 liters/minute. Temp: 97.9 F. Pain level now: 08/29. --06:05 Erin Borrego R.N. 05:59 12/02/2016 Albuterol Neb TX discontinued due to no change in patient condition. --06:36 Erin Borrego R.N. 06:30 12/02/2016 Site #[address] upon transfer; patent, no pain and no signs of infection or infiltration. Good blood return present. Converted to saline lock and flushed with 10 mL saline; flushes easily. --06:35 Erin Borrego R.N. 06:30 12/02/2016 IV Saline Lock Drip IV Continued: upon transfer at the rate of 0 mL/hr. 0 mL remaining. IV patency established. IV site checked: no pain, redness, or swelling. IV flushed thoroughly. --06:36 Erin Borrego R.N. DISPOSITION / DISCHARGE Departure time: 629. Transferred to [facility]. Summary of care provided to transport team and transfer facility via paper and fax (0630 AM). Transported via ambulance by nurse and EMS with monitor, O2 and emergency medications. Report was given to a nurse via a fax. Report included patient's care, treatment, medications, reviewed medication reconcilliation, and condition (including any recent changes or anticipated changes). All questions were answered. Report was acknowledged and care was transferred. Patient's personal items include: pants, coat, socks, shoes and wallet, cane; items were placed in belongings bag and transported with the patient. --06:39 Erin Borrego R.N. 06:36 12/02/16. BP: 137/79. HR: 68. RR: 16. O2 saturation: 91% on nasal cannula at 3 liters/minute. Temp: 97.9 F. Pain level now: 08/29. --06:39 Erin Borrego R.N. Locked/Released at 12/02/2016 6:40 by Erin Borrego R.N.
--- NOTE | 2016-12-03 12:45 | ED DISCHARGE INSTRUCTIONS ---
Patient: YANDEL CALVO General Instructions [facility] VisitID: [id number] [address] [place] [address] 71y, M Registration Date/Time: 12/01/2016 CRESCENDO TIA ACUTE DYSPNEA COPD EXACERBATION with HYPOXEMIA SEVERE VASCULAR DISEASE ATRIAL FIBRILLATION SUPRATHERAPUTIC INR ANXIETY AND CLAUSTROPHOBIA. (Electronically signed by Isidro De Guzman MD 12/03/2016 12:45)
--- NOTE | 2016-12-03 12:45 | ED ORDER SUMMARY ---
..... Patient: YANDEL CALVO OrderSheet [facility] VisitID: [id number] [place] [address] 71y, M Registration Date/Time: 12/01/2016 ORDER SHEET Weight: 113.3 kg Allergies: NKA, No Known Drug Allergy GENERAL ORDERS: Chest 1V Urgent (23:14 12/01/2016 Maximilian EM) (Ack 23:28 Scooter) (23:31 Denia) Engine Pilot (Continuous) (23:14 12/01/2016 Maximilian EM) (23:14 Valerik R.N.) PT with INR Urgent (23:12/01/2016 Maximilian EM) (23:14 Alfredo R.N.) Cardiac Panel Stat (23:12/01/2016 Maximilian EM) (23:14 Alfredo R.N.) BNP Urgent (23:12/01/2016 Maximilian EM) (23:14 Alfredo R.N.) D-Dimer Urgent (23:14 12/01/2016 Maximilian EM) (23:14 Valerik R.N.) Oxygen (2 L/min) (NC) (23:12/01/2016 Maximilian EM) (23:14 Alfredo R.N.) Pulse oximeter (23:12/01/2016 Maximilian EM) (23:14 Valerik R.N.) EKG - ER Stat (23:12/01/2016 Maximilian EM) (23:21 Alfredo R.N.) CT Head wo Cont Urgent (01:12/02/2016 Maximilian EM) (Ack 1:07 Scooter) (1:18 MCenochk R.N.) - (NEEDS TO BE ON [employer] PLZ) (01:02 12/02/2016 Maximilian EM) (1:03 Alfredo R.N.) RT Evaluation Stat (01:12/02/2016 Maximilian EM) (Ack 1:07 Scooter) (1:40 Liam R.N.) ESR Urgent (01:12/02/2016 Maximilian EM) (Ack 1:07 Scooter) (1:41 Liam Cannon.N.) Peak Flow (pre & post) Stat (01:16 12/02/2016 Maximilian EM) (1:40 Liam Cannon.N.) Lipase Urgent (02:02 12/02/2016 Maximilian EM) (2:27 Liam R.N.) MEDICATION ORDERS: Percocet PO 2 tabs 5/225 (NOW) (01:00 12/02/2016 Maximilian EM) (1:11 Alfredo R.N.) Albuterol Neb Tx 3 unit doses (NOW, HHN) (01:03 12/02/2016 Maximilian EM) (Ack 2:34 Liam Cannon.N.) (2:35 Liam Cannon.N.) LORazepam PO 0.5 mg + 0.5 mg (NOW) (01:52 12/02/2016 Maximilian EM) (Ack 2:02 Liam Cannon.N.) (Cancelled: It should have been IV2:15 Maximilian EM) Prednisone PO 60 mg (NOW) (05:23 12/02/2016 Maximilian EM) (Ack 5:26 Liam R.N.) (5:33 Liam Cannon.N.) Albuterol Neb Tx 1 unit dose (HHN) (05:38 12/02/2016 Liam NyN. verbal order read back to Maximilian EM) (Ack 5:40 Liam R.N.) (5:51 Liam RNikoN.) IV FLUIDS: IV Saline Lock (23:14 12/01/2016 Maximilian EM) (23:21 Alfredo Cannon.N.) Solu-MEDROL IV 125 mg (NOW) (01:02 12/02/2016 Maximilian EM) (1:13 Alfredo Cannon.N.) LORazepam IV 0.5 mg + 0.5 iv (NOW) (02:16 12/02/2016 Maximilian EM) (Ack 2:17 Liam R.N.) (2:18 Liam R.N.) ORDER SHEET NOTES: [Electronically signed by Erin Borrego R.N. (06:40 12/02/2016)] [Electronically signed by Isidro De Guzman MD (12:45 12/03/2016)] [Electronically locked/signed by Erin Borrego R.N. (06:40 12/02/2016)]
--- NOTE | 2016-12-03 12:45 | ED DISCHARGE INSTRUCTIONS ---
Patient: YANDEL CALVO General Instructions [facility] VisitID: [id number] [address] [place] [place] [address] 71y, M Registration Date/Time: 12/01/2016 CRESCENDO TIA ACUTE DYSPNEA COPD EXACERBATION with HYPOXEMIA SEVERE VASCULAR DISEASE ATRIAL FIBRILLATION SUPRATHERAPUTIC INR ANXIETY AND CLAUSTROPHOBIA. (Electronically signed by Isidro De Guzman MD 12/03/2016 12:45)
--- NOTE | 2016-12-03 12:45 | ED MAR SUMMARY ---
..... Medication Administration Record [facility] [address] [place] [address] Patient: YANDEL CALVO Visit ID: [id number] 71y, M Weight: 113.3 kg Height/Length: 76 in BMI: 30.4 ALLERGIES: NKA, No Known Drug Allergy Given 01:11 12/02/2016 Harrison Moseley R.N. Medication Administered: PERCOCET [PO] (OXYCODONE-ACETAMINOPHEN), Dose: 2 tab 5/325 mg Tablets PO. Medication Ordered: Percocet PO 2 tabs 5/225 (NOW). Given 01:13 12/02/2016 Harrison Moseley R.N. Medication Administered: SOLU-MEDROL [IVP] (METHYLPREDNISOLONE SODIUM SUCC), Dose: 125 mg IVP over 2 minute(s), Site: #1 left AC. Medication Ordered: Solu-MEDROL IV 125 mg (NOW). Given 01:45 12/02/2016 Erin Borrego R.N., Stop 02:05 12/02/2016 Erin Borrego R.N. Medication Administered: ALBUTEROL [NEB TX], Dose: 3 unit dose Nebulizer Neb TX. Medication Ordered: Albuterol Neb Tx 3 unit doses (NOW, [facility]). Given 01:58 12/02/2016 Erin Borrego R.N. Medication Administered: LORAZEPAM [IVP] (LORAZEPAM), Dose: 0.5 mg IVP over 1 minute(s), Site: #1 left AC. Medication Ordered: LORazepam IV 0.5 mg + 0.5 iv (NOW). Given 02:30 12/02/2016 Erin Borrego R.N. Medication Administered: LORAZEPAM [IVP] (LORAZEPAM), Dose: 0.5 mg IVP over 1 minute(s), Site: #1 left AC. Medication Ordered: LORazepam IV 0.5 mg + 0.5 iv (NOW). Given 05:30 12/02/2016 Erin Borrego R.N. Medication Administered: PREDNISONE [PO], Dose: 60 mg Tablets PO. Medication Ordered: Prednisone PO 60 mg (NOW). Given 05:49 12/02/2016 Erin Borrego R.N., Stop 05:59 12/02/2016 Erin Borrego R.N. Medication Administered: ALBUTEROL [NEB TX], Dose: 1 unit dose Nebulizer Neb TX. Medication Ordered: Albuterol Neb Tx 1 unit dose (N).
--- NOTE | 2016-12-03 12:45 | ED MED RECONCILIATION SUMMARY ---
Patient: YANDEL CALVO Medication Reconciliation Report [facility] VisitID: [id number] [place] [address] 71y, M Registration Date/Time: 12/01/2016 Weight: 113.3 kg Height/Length: 76 in. BMI: 30.4 ALLERGIES: NKA, No Known Drug Allergy The patient's Home Medications are listed below: THE FOLLOWING MEDICATIONS NEED TO BE RECONCILED: Alprazolam Oral 0.5 mg Amoxicillin-Pot Clavulanate Oral (500-125 mg) 1 tablet, 2x a day Aspirin Oral (81 mg) 1 tablet, daily Combivent Inhalation Crestor Oral (10 mg) 1 tablet, daily Cyclobenzaprine HCl Oral 10 mg, daily Finasteride 5mg, daily Hydrocodone-Acetaminophen Oral (10-300 mg), 6x daily Isosorbide Mononitrate Oral 30mg, daily Lasix Oral (40 mg) 1 tablet, daily Lexapro Oral 10 mg, daily Lisinopril Oral 20 mg, daily Metoprolol Succinate ER Oral (200 mg) 1 tablet, daily MiraLax MiraLax Oral Nitroglycerin Sublingual 0.4 mg, PRN Nitrostat Sublingual Protonix Oral (40 mg) 1 tablet, daily Pulmicort Inhalation Q-daniel Tamsulosin 0.4, daily Tamsulosin HCl Oral 0.4 mg, daily Venlafaxine HCl ER Oral Venlafaxine HCl Oral 75 mg Warfarin Sodium Oral 5 mg, F/S/M/W takes 6mg The source(s) of the original Home Medication information: Not obtained. The following Medications were given to the patient in the Emergency Department: Percocet [PO] PO 2 tab, administered: 12/02/2016 1:11:00 AM SOLU-MEDROL [IVP] IVP 125 mg, administered: 12/02/2016 1:13:00 AM Lorazepam [IVP] IVP 0.5 mg, administered: 12/02/2016 1:58:00 AM Albuterol [Neb Tx] Neb TX 3 unit dose, administered: 12/02/2016 1:45:00 AM Lorazepam [IVP] IVP 0.5 mg, administered: 12/02/2016 2:30:00 AM Prednisone [PO] PO 60 mg, administered: 12/02/2016 5:30:00 AM Albuterol [Neb Tx] Neb TX 1 unit dose, administered: 12/02/2016 5:49:00 AM The following Medications were prescribed to the patient: None.
--- NOTE | 2016-12-03 12:45 | ED MAR SUMMARY ---
..... Medication Administration Record [facility] [address] [place] [address] Patient: YANDEL CALVO Visit ID: [id number] 71y, M Weight: 113.3 kg Height/Length: 76 in BMI: 30.4 ALLERGIES: NKA, No Known Drug Allergy Given 01:11 12/02/2016 Harrison Moseley R.N. Medication Administered: PERCOCET [PO] (OXYCODONE-ACETAMINOPHEN), Dose: 2 tab 5/325 mg Tablets PO. Medication Ordered: Percocet PO 2 tabs 5/225 (NOW). Given 01:13 12/02/2016 Harrison Moseley R.N. Medication Administered: SOLU-MEDROL [IVP] (METHYLPREDNISOLONE SODIUM SUCC), Dose: 125 mg IVP over 2 minute(s), Site: #1 left AC. Medication Ordered: Solu-MEDROL IV 125 mg (NOW). Given 01:45 12/02/2016 Erin Borrego R.N., Stop 02:05 12/02/2016 Erin Borrego R.N. Medication Administered: ALBUTEROL [NEB TX], Dose: 3 unit dose Nebulizer Neb TX. Medication Ordered: Albuterol Neb Tx 3 unit doses (NOW, [facility]). Given 01:58 12/02/2016 Erin Borrego R.N. Medication Administered: LORAZEPAM [IVP] (LORAZEPAM), Dose: 0.5 mg IVP over 1 minute(s), Site: #1 left AC. Medication Ordered: LORazepam IV 0.5 mg + 0.5 iv (NOW). Given 02:30 12/02/2016 Erin Borrego R.N. Medication Administered: LORAZEPAM [IVP] (LORAZEPAM), Dose: 0.5 mg IVP over 1 minute(s), Site: #1 left AC. Medication Ordered: LORazepam IV 0.5 mg + 0.5 iv (NOW). Given 05:30 12/02/2016 Erin Borrego R.N. Medication Administered: PREDNISONE [PO], Dose: 60 mg Tablets PO. Medication Ordered: Prednisone PO 60 mg (NOW). Given 05:49 12/02/2016 Erin Borrego R.N., Stop 05:59 12/02/2016 Erin Borrego R.N. Medication Administered: ALBUTEROL [NEB TX], Dose: 1 unit dose Nebulizer Neb TX. Medication Ordered: Albuterol Neb Tx 1 unit dose (N).
== END 2016-12-02 06:30 | disposition short-term general hospital (02) ==
LOC: ED SRH 22:25
DX: G45.9 Transient cerebral ischemic attack, unspecified (principal); J44.1 Chronic obstructive pulmonary disease with (acute) exacerbation; R09.02 Hypoxemia; I48.91 Unspecified atrial fibrillation; I73.9 Peripheral vascular disease, unspecified; R79.1 Abnormal coagulation profile; F40.240 Claustrophobia; F41.9 Anxiety disorder, unspecified; I10 Essential (primary) hypertension; Z79.899 Other long term (current) drug therapy
CPT/HCPCS: 90100; 90616; 91320; 91556; 92235; 92610; 92720; 94060; 95059; 95150

== ENCOUNTER 2016-12-09 16:42 | Emergency (ER) | payer OTHER ==
--- NOTE | 2016-12-09 18:58 | ED NURSING NOTES ---
Clinical Report - Nurses [facility] [address] [place] [address] 12/09/2016 16:41 Patient: YANDEL CALVO TRIAGE Triage time 16:49. Acuity: LEVEL 4. Chief Complaint: BACK PAIN. 16:49 12/09/16. 16:55 12/09/16. Alert. No acute distress. ( Pt states he recently moved and lifted heavy objects and possibly injured his back). SEPSIS SCREEN: Sepsis Screen. Negative (no infection suspected/documented). ARASELI COMA SCORE: Sylvester Coma Scale: 15- eyes open spontaneously (4); best verbal response- oriented x 4 (5); best motor response- obeys commands (6). --16:56 Logan Madrid R.N. 16:49 12/09/16. BP: 149/80. HR: 72. RR: 15. O2 saturation: 99% on room air. Temp: 97.8 F (oral). Pain level now: 5/10. --16:56 Logan Madrid R.N. Weight: 113.3 kg stated. Height/Length: 76 inches Per Patient. BMI: 30.4. --16:52 Logan Madrid R.N. Medications Alprazolam Oral 0.5 mg, as needed. Aspirin Oral (Tablet Chewable 81 mg) 1 tablet, daily. Combivent Inhalation. Crestor Oral (Tablet 10 mg) 1 tablet, daily. Cyclobenzaprine HCl Oral 10 mg, daily. Finasteride 5mg, daily. Hydrocodone-Acetaminophen Oral (Tablet 10-300 mg), 6x daily. Isosorbide Mononitrate Oral 30mg, daily. Lasix Oral (Tablet 40 mg) 1 tablet, daily. --16:50 Logan Madrid R.N. Lexapro Oral 10 mg, daily. Lisinopril Oral 20 mg, daily. Metoprolol Succinate ER Oral (Tablet Extended Release 24 Hour 200 mg) 1 tablet, daily. MiraLax Oral. Nitroglycerin Sublingual 0.4 mg, PRN. Protonix Oral (Tablet Delayed Release 40 mg) 1 tablet, daily. Pulmicort Inhalation. Q-daniel. Tamsulosin HCl Oral 0.4 mg, daily. Venlafaxine HCl Oral 75 mg. Warfarin Sodium Oral 5 mg (F/S/M/W takes 6mg). --16:50 Logan Madrid R.N. Medication/allergy information source: the patient. --16:56 Logan Madrid R.N. Allergies No Known Drug Allergy. --16:50 Logan Madrid R.N. History Arrived by private vehicle. Historian: patient. Accompanied by family. Primary physician (MANAS MACKEY). 16:55 12/09/16. This started yesterday. He has had trouble walking. History of recent trauma (moderate)- lifting injury. 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 PAST MEDICAL HX: Tetanus status: up-to-date. Immunizations: up-to-date. SOCIAL HX: Never smoker. History of occasional drug use: marijuana. No alcohol use. No infectious disease exposure. ABUSE ASSESSMENT: No report of abuse. FALL RISK ASSESSMENT: Fall risk assessment completed. No fall risk identified. NUTRITIONAL RISK ASSESSMENT: The nutritional risk assessment revealed no deficiencies. FUNCTIONAL ASSESSMENT: Functional assessment: no impairments noted. LEARNING NEEDS ASSESSMENT: The learning needs assessment revealed no barriers. SKIN INTEGRITY ASSESSMENT: Skin integrity risk assessment completed. No skin integrity risk identified. --16:56 Logan Madrid R.N. PROBLEMS: Head Injury. Weakness. Renal Insufficiency. Atrial Fibrillation. Congestive Heart Failure. Stomach Cancer. Parotitis. Dysphagia. GI Disease. Hypoxia. Cancer. Vomiting. Pancreatitis. Peripheral Arterial Occlusive Disease. Paresthesia. Peripheral Vascular Disease. Constipation. Panic Attack. Anxiety Reaction. Back Injury. Biliary Colic. Intervertebral Disc Disease. Animal Bite. Cellulitis. Tetanus Status. Hypercholesterolemia. Chest Pain. Syncope. Coronary Artery Disease. COPD - Chronic Obstructive Pulmonary Disease. Hypertension. Chronic Back Pain. Immunizations. --16:51 Logan Madrid R.N. Gastritis [RuleOut]. Abdominal Pain [RuleOut]. --16:51 Logan Madrid R.N. ADDITIONAL SURGERIES: Aortic stent placement . Appendectomy. Carotid Surgery. Cholecystectomy. Colonoscopy. Coronary Angioplasty. Coronary Artery Bypass Graft. Endoscopy. Femoral artery stents. Inguinal Hernia Repair. Peripheral Vascular Surgery. Polyp Removal (stomach). --16:52 Logan Madrid R.N. Assessment 16:56 12/09/16. --16:56 Logan Madrid R.N. Interventions 16:49 12/09/16. 16:56 12/09/16. ID and allergy band on patient. To treatment room. --16:56 Logan Madrid R.N. PHYSICAL ASSESSMENT 16:52 12/09/16. To room via wheelchair. GENERAL / NEURO / PSYCH: Appears in pain. RESPIRATORY: Respirations not labored. CVS: Capillary refill less than 2 seconds. --16:52 Logan Madrid R.N. NURSING PROGRESS NOTES 16:52 12/09/16. The plan of care for this patient has been created. Head of bed elevated. Reassurance given. Two patient identifiers checked. Call light placed in reach. Side rails up x 2. Bed placed in lowest position. Brakes of bed on. --16:52 Logan Madrid R.N. 16:53 12/09/16. Patient ready for evaluation- chart flagged and notification provided. --16:53 Logan Madrid R.N. 17:21 12/09/2016 Site #1 started via IV in the right antecubital space with an 22g angiocath, with aseptic technique and good blood return; one attempt. Blood drawn: rainbow set. Labeled in the presence of the patient and sent to the lab. Saline lock flushed with 10 mL saline. --17:21 May Joseph R.N. 17:12/09/2016 Dilaudid (HYDROmorphone HCl PF) IVP 2 mg given over 2 minute(s) via site #1. Allergies verified, confirmed 5 rights and sedative warning given to the patient. IV patency established. IV site checked: no pain, redness, or swelling. IV flushed thoroughly pre- and post-medication administration. --17:21 May Joseph R.N. Pulse oximeter placed on patient; monitor alarms on. --17:21 May Joseph R.N. 18:25 12/09/16. --18:25 Logan Madrid R.N. 18:25 12/09/16. BP: 145/84. HR: 80. RR: 16. O2 saturation: 97% on room air. --18:25 Logan Madrid R.N. 18:25 12/09/16. --18:25 Logan Madrid R.N. 18:25 12/09/16. Pain level now: 09/26. --18:25 Logan Madrid R.N. 18:28 12/09/16. Patient informed about reason for wait and about plan of care. --18:28 Logan Madrid R.N. 18:57 12/09/2016 Percocet (Oxycodone-Acetaminophen) PO 5/325 mg Tablets 1 tab given. Allergies verified, confirmed 5 rights and sedative warning given to the patient. --18:57 Logan Madrid R.N. 18:58 12/09/2016 Site #1 removed upon discharge. Catheter intact. --18:58 Logan Madrid R.N. DISPOSITION / DISCHARGE 19:12/09/16. Condition at departure: improved. The goals identified in the patient's plan of care were met. No learning barriers present. Discharge instructions provided and reviewed with the patient. Reviewed warnings. Reviewed medication(s). Treatments reviewed. Patient verbalized understanding. Written instructions provided in Occitan. The patient left the Emergency Department without completion of treatment; patient was accompanied by a family member. The patient appears to be alert, oriented x4, coherent and in no acute distress. Notified the charge nurse of patient departure. Prior to leaving the ED, he was advised to stay for completion of treatment and return if needed. The patient was informed of the risks of leaving and verbalized understanding of these risks. Patient signed form prior to leaving. He left the Emergency Department ambulatory and via private vehicle. ( Refused DC vitals and wanted to go home refusing CT scan). 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 He was discharged home and accompanied by family. He left the Emergency Department ambulatory and via private vehicle. Family member driving. FALL RISK ASSESSMENT: Fall risk assessment completed. No fall risk identified. --19: Logan Madrid R.N. 19:03 12/09/16. BP: deferred. HR: deferred. RR: deferred. O2 saturation: deferred. Temp: deferred. Additional comments: Pt refused DC vitals. --19:05 Logan Madrid R.N. 19:05 12/09/16. Departure time: 19:Dec 09 2016. --19:05 Logan Madrid R.N. Locked/Released at 12/09/2016 19:06 by Logan Madrid R.N.
--- NOTE | 2016-12-09 18:58 | ED ORDER SUMMARY ---
..... Patient: YANDEL CALVO OrderSheet [facility] VisitID: [id number] [address] [place] [address] 71y, M Registration Date/Time: 12/09/2016 ORDER SHEET Weight: 113.3 kg (stated) Allergies: No Known Drug Allergy GENERAL ORDERS: CBC w Diff Urgent (17:10 12/09/2016 EKoroleva P.A.-C) (Ack 17:13 NHouse ER Tech1) (17:21 SReitz R.N.) BMP Urgent (17:10 12/09/2016 EKoroleva P.A.-C) (Ack 17:11 SReitz R.N.) (17:21 SReitz R.N.) CTA Abdomen w Cont (No) (see lab) Urgent (17:17 12/09/2016 EKoroleva P.A.-C) (Ack 17:20 NHouse ER Tech1) (Cancelled: Other17:23 EKoroleva P.A.-C) PT with INR Urgent (17:17 12/09/2016 EKoroleva P.A.-C) (Ack 17:20 NHouse ER Tech1) (17:21 SReitz R.N.) PTT Urgent (17:17 12/09/2016 EKoroleva P.A.-C) (Ack 17:20 NHouse ER Tech1) (17:21 SReitz R.N.) CTA Abdomen/Pelvis (No) (see lab) Urgent (17:24 12/09/2016 EKoroleva P.A.-C) (Ack 17:24 NHouse ER Tech1) (Cancelled: Physician Order18:57 JBoardley R.N.) MEDICATION ORDERS: Percocet PO 5/325 mg (HIGH ALERT MEDICATION, NOW) (18:51 12/09/2016 EKoroleva P.A.-C) (Ack 18:53 JBoardley R.N.) (18:57 JBoardley R.N.) IV FLUIDS: IV Saline Lock (17:10 12/09/2016 EKoroleva P.A.-C) (Ack 17:11 SReitz R.N.) (17:21 SReitz R.N.) Dilaudid IV 2 mg (HIGH ALERT MEDICATION, NOW) (17:11 12/09/2016 Amaya Allison) ([facility] 17:11 Digna Oshea.) (17:21 Digna NyN.) ORDER SHEET NOTES: [Electronically signed by Logan Madrid R.N. (19:06 12/09/2016)] [Electronically signed by Landy Shannon P.A.-C (19:26 12/09/2016)] [Electronically locked/signed by Logan Madrid R.N. (19:06 12/09/2016)]
--- NOTE | 2016-12-09 18:58 | ED CLINICAL REPORT ---
Clinical Report - Physicians/Mid Levels [facility] [address] [place] [address] 12/09/2016 16:41 Patient: YANDEL CALVO Time Seen: 17:28 Dec 09 2016. Arrived- By private vehicle. Historian- patient. HISTORY OF PRESENT ILLNESS Chief Complaint: BACK PAIN. It is described as being in the area of the mid lumbar spine and radiating to the right lower extremity and to the left lower extremity. The quality is noted to be "pain" and similar to prior episodes. 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 No bladder dysfunction, bowel dysfunction or sensory loss. Additional history - patient reports back pain over the last 2 weeks, worsening over the last 2 days. Patient states he has been recently moving, the pain worsens with any movement or any activity. Patient recently in the hospital for possible stroke, was treated for COPD exacerbation, has been on antibiotics, has not been taking his warfarin. Patient saw his primary care provider yesterday, he did not mention his back pain at the time. 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 Patient reports previous stenting around 2010 of his femoral arteries, as well as his aorta. Unsure of where the aorta was stented Patient had bypass surgery at the same time. Since his recent visit to [facility] and a possible stroke, he has been weak, which has been generalized. Patient reports some memory concerns, however no difficulty with any specific extremity or weakness that is unilateral. The patient ambulates with a cane. Denies any new recent fall or trauma. Denies any abdominal pain. Denies any urgency or frequency. His back pain is the same as previous, however worsens with movement. His back pain at times radiates to his bilateral lower extei, i is not nwtoim. 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 REVIEW OF SYSTEMS No fever, chills, urinary frequency, headache or nausea. No diarrhea. All systems otherwise negative, except as recorded above. PAST HISTORY Problems: Head Injury. Headache. Weakness. Renal Insufficiency. Atrial Fibrillation. Congestive Heart Failure. Pedal Edema. Stomach Cancer. Parotitis. Dysphagia. GI Disease. Hypoxia. Cancer. Vomiting. Pancreatitis. Peripheral Arterial Occlusive Disease. Paresthesia. Peripheral Vascular Disease. Constipation. Panic Attack. Anxiety Reaction. Back Injury. Biliary Colic. Intervertebral Disc Disease. Animal Bite. Cellulitis. Tetanus Status. Hypercholesterolemia. Chest Pain. Syncope. Coronary Artery Disease. COPD - Chronic Obstructive Pulmonary Disease. Hypertension. Chronic Back Pain. Immunizations. Gastritis [RuleOut]. Abdominal Pain [RuleOut]. Additional Surgeries: Aortic stent placement . Appendectomy. Carotid Surgery. Cholecystectomy. Colonoscopy. Coronary Angioplasty. Coronary Artery Bypass Graft. Endoscopy. Femoral artery stents. Inguinal Hernia Repair. Peripheral Vascular Surgery. Polyp Removal (stomach). Medications: Lexapro Oral 10 mg, daily. Lisinopril Oral 20 mg, daily. Metoprolol Succinate ER Oral (Tablet Extended Release 24 Hour 200 mg) 1 tablet, daily. MiraLax Oral. Nitroglycerin Sublingual 0.4 mg, PRN. Protonix Oral (Tablet Delayed Release 40 mg) 1 tablet, daily. Pulmicort Inhalation. Q-daniel. Tamsulosin HCl Oral 0.4 mg, daily. Venlafaxine HCl Oral 75 mg. Warfarin Sodium Oral 5 mg (F/S/M/W takes 6mg). Alprazolam Oral 0.5 mg, as needed. Aspirin Oral (Tablet Chewable 81 mg) 1 tablet, daily. Combivent Inhalation. Crestor Oral (Tablet 10 mg) 1 tablet, daily. Cyclobenzaprine HCl Oral 10 mg, daily. Finasteride 5mg, daily. Hydrocodone-Acetaminophen Oral (Tablet 10-300 mg), 6x daily. Isosorbide Mononitrate Oral 30mg, daily. Lasix Oral (Tablet 40 mg) 1 tablet, daily. Allergies: No Known Drug Allergy. SOCIAL HISTORY Never smoker. History of drug use: marijuana. No alcohol use. ADDITIONAL NOTES The nursing notes have been reviewed. PHYSICAL EXAM Vital Signs: 12/09/2016 16:49 BP: 149/80. HR: 72. RR: 15. O2 saturation: 99%. Temp: 97.8 F. Pain level now: 5/10. Appearance: No apparent distress. Not alert. Eyes: Pupils equal, round and reactive to light. ENT: Ears normal. Neck: Normal inspection. Neck nontender. CVS: Heart sounds normal. Pulses normal. Respiratory: No respiratory distress. Breath sounds normal. Abdomen: No mass. Obese. No abdominal tenderness or scar present. Back: Normal inspection. No tenderness. Vertebral point tenderness. Soft tissue tenderness. Skin: Skin cool. Neuro: Mood/affect normal. No motor deficit. No sensory deficit. PROGRESS AND PROCEDURES Course of Care: the patient here in the ER is with back pain, with extensive vascular history. [facility] records reviewed, he was seen by neurosurgery there, they did not believe he was having a stroke, symptoms were most consistent with Amaurosis fugax. patient is otherwise stable, And with her, gave history cannot exclude aneurysm. I offered patient multiple medications, anxiety medications for CT. He had a CT of his head recently, and I explained to him this is a similar damage, however only of his abdomen to ensure there is no bleeding, as he reports previous INR were high, low and subtherapeutic today. He is taken warfarin now. Patient understands the concerns, he is in his right state of mind, and wishes to be discharged home and follow up with his primary care provider. Given Percocet over the next few days. Patient informed to return if any of his symptoms worsen acutely. Patient is stable. Patient/family counseled. Disposition: Discharged. Condition: good. CLINICAL IMPRESSION Back pain. INSTRUCTIONS (Please increase your dose of warfarin 2 double the amount over the next few days, and then follow-up with Dr. Vergara. Please do not use Vicodin for 2 days as you're taking Percocet. If any new symptoms worsen please return to the emergency department. At this time you have chosen to leave with a sound mind while being alert and able to make decisions AGAINST MEDICAL ADVICE. GIVEN YOUR HISTORY OF VASCULAR DISORDERS, INCLUDING PREVIOUS ANEURYSM, FURTHER IMAGES ARE NECESSARY TO UNDERSTAND EXTEND OF YOUR PAIN AND POSSIBLE OTHER DISEASE PROCESS. AT THIS TIME YOU MAY BE HAVING A BLEED INSIDE IN ABDOMEN FROM YOUR AORTA, AND CHOOSING TO LEAVE CAN CAUSE SIGNIFICANT COMPLICATIONS WITH DISABILITY/ AND , SUCH BLEED CAN NOT BE CONFIRMED OR REJECTED.). Prescription Medications: Percocet 5 mg/325 mg: take 1 tablet orally as needed for pain. Dispense twelve (12). No refill. Substitution is permissible. Understanding of the discharge instructions verbalized by patient. (Electronically signed by Landy Shannon P.ANiko-Jhoana 12/09/2016 19:26)
--- NOTE | 2016-12-09 18:58 | ED ORDER SUMMARY ---
..... Patient: YANDEL CALVO OrderSheet [facility] VisitID: [id number] [address] [place] [address] 71y, M Registration Date/Time: 12/09/2016 ORDER SHEET Weight: 113.3 kg (stated) Allergies: No Known Drug Allergy GENERAL ORDERS: CBC w Diff Urgent (17:10 12/09/2016 EKoroleva P.A.-C) (Ack 17:13 NHouse ER Tech1) (17:21 SReitz R.N.) BMP Urgent (17:10 12/09/2016 EKoroleva P.A.-C) (Ack 17:11 SReitz R.N.) (17:21 SReitz R.N.) CTA Abdomen w Cont (No) (see lab) Urgent (17:17 12/09/2016 EKoroleva P.A.-C) (Ack 17:20 NHouse ER Tech1) (Cancelled: Other17:23 EKoroleva P.A.-C) PT with INR Urgent (17:17 12/09/2016 EKoroleva P.A.-C) (Ack 17:20 NHouse ER Tech1) (17:21 SReitz R.N.) PTT Urgent (17:17 12/09/2016 EKoroleva P.A.-C) (Ack 17:20 NHouse ER Tech1) (17:21 SReitz R.N.) CTA Abdomen/Pelvis (No) (see lab) Urgent (17:24 12/09/2016 EKoroleva P.A.-C) (Ack 17:24 NHouse ER Tech1) (Cancelled: Physician Order18:57 JBoardley R.N.) MEDICATION ORDERS: Percocet PO 5/325 mg (HIGH ALERT MEDICATION, NOW) (18:51 12/09/2016 EKoroleva P.A.-C) (Ack 18:53 JBoardley R.N.) (18:57 JBoardley R.N.) IV FLUIDS: IV Saline Lock (17:10 12/09/2016 EKoroleva P.A.-C) (Ack 17:11 SReitz R.N.) (17:21 SReitz R.N.) Dilaudid IV 2 mg (HIGH ALERT MEDICATION, NOW) (17:11 12/09/2016 Amaya Allison) ([facility] 17:11 Digna Oshea.) (17:21 Digna NyN.) ORDER SHEET NOTES: [Electronically signed by Logan Madrid R.N. (19:06 12/09/2016)] [Electronically signed by Landy Shannon P.A.-C (19:26 12/09/2016)] [Electronically locked/signed by Logan Madrid R.N. (19:06 12/09/2016)]
--- NOTE | 2016-12-09 19:26 | ED MED RECONCILIATION SUMMARY ---
Patient: YANDEL CALVO Medication Reconciliation Report [facility] VisitID: [id number] [address] [place] [address] 71y, M Registration Date/Time: 12/09/2016 Weight: 113.3 kg Height/Length: 76 in. BMI: 30.4 ALLERGIES: No Known Drug Allergy The patient's Home Medications are listed below: THE FOLLOWING MEDICATIONS NEED TO BE RECONCILED: Alprazolam Oral 0.5 mg Aspirin Oral (81 mg) 1 tablet, daily Combivent Inhalation Crestor Oral (10 mg) 1 tablet, daily Cyclobenzaprine HCl Oral 10 mg, daily Finasteride 5mg, daily Hydrocodone-Acetaminophen Oral (10-300 mg), 6x daily Isosorbide Mononitrate Oral 30mg, daily Lasix Oral (40 mg) 1 tablet, daily Lexapro Oral 10 mg, daily Lisinopril Oral 20 mg, daily Metoprolol Succinate ER Oral (200 mg) 1 tablet, daily MiraLax Oral Nitroglycerin Sublingual 0.4 mg, PRN Protonix Oral (40 mg) 1 tablet, daily Pulmicort Inhalation Q-daniel Tamsulosin HCl Oral 0.4 mg, daily Venlafaxine HCl Oral 75 mg Warfarin Sodium Oral 5 mg, F/S/M/W takes 6mg The source(s) of the original Home Medication information: patient The following Medications were given to the patient in the Emergency Department: Dilaudid [IVP] IVP 2 mg, administered: 12/09/2016 5:21:00 PM Percocet [PO] PO 1 tab, administered: 12/09/2016 6:57:00 PM The following Medications were prescribed to the patient: Percocet 5 mg/325 mg: take 1 tablet orally as needed for pain. Dispense twelve (12). No refill. Substitution is permissible. -- Landy Shannon P.A.-C
--- NOTE | 2016-12-09 19:26 | ED DISCHARGE INSTRUCTIONS ---
Patient: YANDEL CALVO General Instructions [facility] VisitID: [id number] [address] [place] [address] 71y, M Registration Date/Time: 12/09/2016 Back pain. INSTRUCTIONS (Please increase your dose of warfarin 2 double the amount over the next few days, and then follow-up with Dr. Vergara. Please do not use Vicodin for 2 days as you're taking Percocet. If any new symptoms worsen please return to the emergency department. At this time you have chosen to leave with a sound mind while being alert and able to make decisions AGAINST MEDICAL ADVICE. GIVEN YOUR HISTORY OF VASCULAR DISORDERS, INCLUDING PREVIOUS ANEURYSM, FURTHER IMAGES ARE NECESSARY TO UNDERSTAND EXTEND OF YOUR PAIN AND POSSIBLE OTHER DISEASE PROCESS. AT THIS TIME YOU MAY BE HAVING A BLEED INSIDE IN ABDOMEN FROM YOUR AORTA, AND CHOOSING TO LEAVE CAN CAUSE SIGNIFICANT COMPLICATIONS WITH DISABILITY/ AND , SUCH BLEED CAN NOT BE CONFIRMED OR REJECTED.). Prescription Medications: Percocet 5 mg/325 mg: take 1 tablet orally as needed for pain. Dispense twelve (12). No refill. Substitution is permissible. Understanding of the discharge instructions verbalized by patient. ADDITIONAL INFORMATION Back Pain [Acute Or Chronic] Back pain is usually caused by an injury to the muscles or ligaments of the spine. Sometimes the disks that separate each bone in the spine may bulge and cause pain by pressing on a nearby nerve. Back pain may also appear after a sudden twisting/bending force (such as in a car accident), after a simple awkward movement, or lifting something heavy with poor body positioning. In either case, muscle spasm is often present and adds to the pain. Acute back pain usually gets better in one to two weeks. Back pain related to disk disease, arthritis in the spinal joints or spinal stenosis (narrowing of the spinal canal) can become chronic and last for months or years. Unless you had a physical injury (for example, a car accident or fall) X-rays are usually not ordered for the initial evaluation of back pain. If pain continues and does not respond to medical treatment, x-rays and other tests may be performed at a later time. Home Care: You may need to stay in bed the first few days. But, as soon as possible, begin sitting or walking to avoid problems with prolonged bed rest (muscle weakness, worsening back stiffness and pain, blood clots in the legs). When in bed, try to find a position of comfort. A firm mattress is best. Try lying flat on your back with pillows under your knees. You can also try lying on your side with your knees bent up towards your chest and a pillow between your knees. Avoid prolonged sitting. This puts more stress on the lower back than standing or walking. During the first two days after injury, apply an ICE PACK to the painful area for 20 minutes every 2-4 hours. This will reduce swelling and pain. HEAT (hot shower, hot bath or heating pad) works well for muscle spasm. You can start with ice, then switch to heat after two days. Some patients feel best alternating ice and heat treatments. Use the one method that feels the best to you. You may use acetaminophen (Tylenol) or ibuprofen (Motrin, Advil) to control pain, unless another pain medicine was prescribed. [NOTE: If you have chronic liver or kidney disease or ever had a stomach ulcer or GI bleeding, talk with your doctor before using these medicines.] Be aware of safe lifting methods and do not lift anything over 15 pounds until all the pain is gone. Follow Up with your doctor or this facility if your symptoms do not start to improve after one week. Physical therapy may be needed. [NOTE: If X-rays were taken, they will be reviewed by a radiologist. You will be notified of any new findings that may affect your care.] Get Prompt Medical Attention if any of the following occur: Pain becomes worse or spreads to your legs Weakness or numbness in one or both legs Loss of bowel or bladder control Numbness in the groin or genital area Oxycodone Hydrochloride, Acetaminophen Oral tablet What is this medicine? ACETAMINOPHEN; OXYCODONE (a set a TIBURCIO opal fen; ox i KOE done) is a pain reliever. It is used to treat mild to moderate pain. How should I use this medicine? Take this medicine by mouth with a full glass of water. Follow the directions on the prescription label. Take your medicine at regular intervals. Do not take your medicine more often than directed. Talk to your party host/hostess regarding the use of this medicine in children. Special care may be needed. Patients over 65 years old may have a stronger reaction and need a smaller dose. What side effects may I notice from receiving this medicine? Side effects that you should report to your doctor or health school child care attendant as soon as possible: allergic reactions like skin rash, itching or hives, swelling of the face, lips, or tongue breathing difficulties, wheezing confusion light headedness or fainting spells severe stomach pain yellowing of the skin or the whites of the eyes Side effects that usually do not require medical attention (report to your doctor or health school child care attendant if they continue or are bothersome): dizziness drowsiness nausea vomiting What may interact with this medicine? alcohol antihistamines barbiturates like amobarbital, butalbital, butabarbital, methohexital, pentobarbital, phenobarbital, thiopental, and secobarbital benztropine drugs for bladder problems like solifenacin, trospium, oxybutynin, tolterodine, hyoscyamine, and methscopolamine drugs for breathing problems like ipratropium and tiotropium drugs for certain stomach or intestine problems like propantheline, homatropine methylbromide, glycopyrrolate, atropine, belladonna, and dicyclomine general anesthetics like etomidate, ketamine, nitrous oxide, propofol, desflurane, enflurane, halothane, isoflurane, and sevoflurane medicines for depression, anxiety, or psychotic disturbances medicines for sleep muscle relaxants naltrexone narcotic medicines (opiates) for pain phenothiazines like perphenazine, thioridazine, chlorpromazine, mesoridazine, fluphenazine, prochlorperazine, promazine, and trifluoperazine scopolamine tramadol trihexyphenidyl What if I miss a dose? If you miss a dose, take it as soon as you can. If it is almost time for your next dose, take only that dose. Do not take double or extra doses. Where should I keep my medicine? Keep out of the reach of children. This medicine can be abused. Keep your medicine in a safe place to protect it from theft. Do not share this medicine with anyone. Selling or giving away this medicine is dangerous and against the law. Store at room temperature between 20 and 25 degrees C (68 and 77 degrees F). Keep container tightly closed. Protect from light. This medicine may cause accidental overdose and if it is taken by other adults, children, or pets. Flush any unused medicine down the toilet to reduce the chance of harm. Do not use the medicine after the expiration date. What should I tell my health care provider before I take this medicine? They need to know if you have any of these conditions: brain tumor Crohn's disease, inflammatory bowel disease, or ulcerative colitis drink more than 3 alcohol containing drinks per day drug abuse or addiction head injury heart or circulation problems kidney disease or problems going to the bathroom liver disease lung disease, asthma, or breathing problems an unusual or allergic reaction to acetaminophen, oxycodone, other opioid analgesics, other medicines, foods, dyes, or preservatives or trying to get breast-feeding What should I watch for while using this medicine? Tell your doctor or health school child care attendant if your pain does not go away, if it gets worse, or if you have new or a different type of pain. You may develop tolerance to the medicine. Tolerance means that you will need a higher dose of the medication for pain relief. Tolerance is normal and is expected if you take this medicine for a long time. Do not suddenly stop taking your medicine because you may develop a severe reaction. Your body becomes used to the medicine. This does NOT mean you are addicted. Addiction is a behavior related to getting and using a drug for a non-medical reason. If you have pain, you have a medical reason to take pain medicine. Your doctor will tell you how much medicine to take. If your doctor wants you to stop the medicine, the dose will be slowly lowered over time to avoid any side effects. You may get drowsy or dizzy. Do not drive, use machinery, or do anything that needs mental alertness until you know how this medicine affects you. Do not stand or sit up quickly, especially if you are an older patient. This reduces the risk of dizzy or fainting spells. Alcohol may interfere with the effect of this medicine. Avoid alcoholic drinks. There are different types of narcotic medicines (opiates) for pain. If you take more than one type at the same time, you may have more side effects. Give your health care provider a list of all medicines you use. Your doctor will tell you how much medicine to take. Do not take more medicine than directed. Call emergency for help if you have problems breathing. The medicine will cause constipation. Try to have a bowel movement at least every 2 to 3 days. If you do not have a bowel movement for 3 days, call your doctor or health school child care attendant. Do not take Tylenol (acetaminophen) or medicines that have acetaminophen with this medicine. Too much acetaminophen can be very dangerous. Many nonprescription medicines contain acetaminophen. Always read the labels carefully to avoid taking more acetaminophen. You have been given the following additional information: Back Pain (Acute Or Chronic) Oxycodone Hydrochloride, Acetaminophen Oral tablet (Electronically signed by Landy Shannon P.A.-C 12/09/2016 19:26)
--- NOTE | 2016-12-09 19:26 | ED MAR SUMMARY ---
..... Medication Administration Record [facility] [address] [place] [address] Patient: YANDEL CALVO Visit ID: [id number] 71y, M Weight: 113.3 kg Height/Length: 76 in BMI: 30.4 ALLERGIES: No Known Drug Allergy Given 17:21 12/09/2016 May Joseph R.N. Medication Administered: DILAUDID [IVP] (HYDROMORPHONE HCL PF), Dose: 2 mg IVP over 2 minute(s), Site: #1 right AC. Medication Ordered: Dilaudid IV 2 mg (HIGH ALERT MEDICATION, NOW). Given 18:57 12/09/2016 Logan Madrid RSkyler Medication Administered: PERCOCET [PO] (OXYCODONE-ACETAMINOPHEN), Dose: 1 tab 5/325 mg Tablets PO. Medication Ordered: Percocet PO 5/325 mg (HIGH ALERT MEDICATION, NOW).
--- NOTE | 2016-12-09 19:26 | ED MAR SUMMARY ---
..... Medication Administration Record [facility] [address] [place] [address] Patient: YANDEL CALVO Visit ID: [id number] 71y, M Weight: 113.3 kg Height/Length: 76 in BMI: 30.4 ALLERGIES: No Known Drug Allergy Given 17:21 12/09/2016 May Joseph R.N. Medication Administered: DILAUDID [IVP] (HYDROMORPHONE HCL PF), Dose: 2 mg IVP over 2 minute(s), Site: #1 right AC. Medication Ordered: Dilaudid IV 2 mg (HIGH ALERT MEDICATION, NOW). Given 18:57 12/09/2016 Logan Madrid RSkyler Medication Administered: PERCOCET [PO] (OXYCODONE-ACETAMINOPHEN), Dose: 1 tab 5/325 mg Tablets PO. Medication Ordered: Percocet PO 5/325 mg (HIGH ALERT MEDICATION, NOW).
--- NOTE | 2016-12-09 19:26 | ED MED RECONCILIATION SUMMARY ---
Patient: YANDEL CALVO Medication Reconciliation Report [facility] VisitID: [id number] [address] [place] [address] 71y, M Registration Date/Time: 12/09/2016 Weight: 113.3 kg Height/Length: 76 in. BMI: 30.4 ALLERGIES: No Known Drug Allergy The patient's Home Medications are listed below: THE FOLLOWING MEDICATIONS NEED TO BE RECONCILED: Alprazolam Oral 0.5 mg Aspirin Oral (81 mg) 1 tablet, daily Combivent Inhalation Crestor Oral (10 mg) 1 tablet, daily Cyclobenzaprine HCl Oral 10 mg, daily Finasteride 5mg, daily Hydrocodone-Acetaminophen Oral (10-300 mg), 6x daily Isosorbide Mononitrate Oral 30mg, daily Lasix Oral (40 mg) 1 tablet, daily Lexapro Oral 10 mg, daily Lisinopril Oral 20 mg, daily Metoprolol Succinate ER Oral (200 mg) 1 tablet, daily MiraLax Oral Nitroglycerin Sublingual 0.4 mg, PRN Protonix Oral (40 mg) 1 tablet, daily Pulmicort Inhalation Q-daniel Tamsulosin HCl Oral 0.4 mg, daily Venlafaxine HCl Oral 75 mg Warfarin Sodium Oral 5 mg, F/S/M/W takes 6mg The source(s) of the original Home Medication information: patient The following Medications were given to the patient in the Emergency Department: Dilaudid [IVP] IVP 2 mg, administered: 12/09/2016 5:21:00 PM Percocet [PO] PO 1 tab, administered: 12/09/2016 6:57:00 PM The following Medications were prescribed to the patient: Percocet 5 mg/325 mg: take 1 tablet orally as needed for pain. Dispense twelve (12). No refill. Substitution is permissible. -- Landy Shannon P.A.-C
== END 2016-12-09 19:55 | disposition left against medical advice (07) ==
LOC: ED SRH 16:42
DX: M54.5 Low back pain (principal); I73.89 Other specified peripheral vascular diseases; Z79.01 Long term (current) use of anticoagulants; I50.9 Heart failure, unspecified; I48.91 Unspecified atrial fibrillation; I74.4 Embolism and thrombosis of arteries of extremities, unspecified; I10 Essential (primary) hypertension; J44.9 Chronic obstructive pulmonary disease, unspecified; E78.00 Pure hypercholesterolemia, unspecified; Z95.1 Presence of aortocoronary bypass graft; Z79.82 Long term (current) use of aspirin
CPT/HCPCS: 90047; 94001; 94060; 95059

== ENCOUNTER 2017-01-15 12:48 | Outpatient (CLI) | payer OTHER ==
--- NOTE | 2017-01-15 16:10 | DIAGNOSTIC IMAGING REPORT ---
PROCEDURE: US GUIDANCE BX/INJ/ASP/LOC INDICATION: LEFT PAROTID MASS COMPARISON: Comparison made to CT neck from [facility] (12/02/2016), and CT neck from [facility] (04/25/2016). TECHNIQUE: Informed consent was obtained and the patient was advised of the usual risks and complications including infection, bleeding and allergy. Right lateral decubitus position. Following sterile preparation and 1% lidocaine local anesthetic, ultrasound guidance was utilized to place a 16-gauge coaxial needle in the left upper neck and directed into a 1.6 cm left parotid nodule. Subsequently, seven core biopsy samples were obtained with a 22-gauge biopsy instrument. Samples were placed in formalin and transferred to the laboratory. The patient tolerated the procedure well and was discharged home in satisfactory condition with instructions to call for any untoward symptoms (increasing pain/swelling). IMPRESSION: 1. Successful ultrasound-guided biopsy of left parotid mass.
--- NOTE | 2017-01-15 16:10 | DIAGNOSTIC IMAGING REPORT ---
PROCEDURE: US GUIDANCE BX/INJ/ASP/LOC INDICATION: LEFT PAROTID MASS COMPARISON: Comparison made to CT neck from [facility] (12/02/2016), and CT neck from [facility] (04/25/2016). TECHNIQUE: Informed consent was obtained and the patient was advised of the usual risks and complications including infection, bleeding and allergy. Right lateral decubitus position. Following sterile preparation and 1% lidocaine local anesthetic, ultrasound guidance was utilized to place a 16-gauge coaxial needle in the left upper neck and directed into a 1.6 cm left parotid nodule. Subsequently, seven core biopsy samples were obtained with a 22-gauge biopsy instrument. Samples were placed in formalin and transferred to the laboratory. The patient tolerated the procedure well and was discharged home in satisfactory condition with instructions to call for any untoward symptoms (increasing pain/swelling). IMPRESSION: 1. Successful ultrasound-guided biopsy of left parotid mass.
== END 2017-01-15 23:00 | disposition home or self-care (01) ==
LOC: US SRH 12:48
DX: K11.8 Other diseases of salivary glands (principal)
CPT/HCPCS: 82445; 82480; 90074; 94060

== ENCOUNTER 2017-01-21 04:16 | Emergency (ER) | payer OTHER ==
--- NOTE | 2017-01-21 06:47 | DIAGNOSTIC IMAGING REPORT ---
PROCEDURE: XR CHEST 2 VIEW INDICATION: SHORTNESS OF BREATH TECHNIQUE: PA and lateral view. COMPARISON: Chest x-ray 12/02/2016. FINDINGS: Left basilar scarring. Median sternotomy and CABG. Heart size, mediastinum and prior vessels are normal. Left lower neck surgical changes. Bony thorax is unremarkable. No significant interval change. IMPRESSION: 1. CABG 2. Left basilar scarring 3. No acute changes
--- NOTE | 2017-01-21 07:38 | ED ORDER SUMMARY ---
..... Patient: YANDEL CALVO OrderSheet [facility] VisitID: [id number] [place] [address] 71y, M Registration Date/Time: 01/21/2017 ORDER SHEET Weight: 117.0 kg (stated) Allergies: No Known Drug Allergy GENERAL ORDERS: Chest 2V Urgent (04:48 01/21/2017 PHutchinson DO) (5:16 JRomanelli R.N.) Backup Engineer (Continuous) (04:49 01/21/2017 PHutchinson DO) (4:58 SSambou R.N.) UA-Culture if indicated Urgent (04:49 01/21/2017 PHutchinson DO) (Ack 5:27 Vishnu) (6:55 JSanders R.N.) Cardiac Panel Stat (04:49 01/21/2017 PHutchinson DO) (5:14 JRomanelli R.N.) BNP Urgent (04:49 01/21/2017 PHutchinson DO) (5:14 JRomanelli R.N.) Amylase Urgent (04:49 01/21/2017 PHutchinson DO) (5:14 JRomanelli R.N.) Pulse oximeter (04:49 01/21/2017 PHutchinson DO) (4:51 JSanders R.N.) EKG - ER Stat (04:49 01/21/2017 PHutchinson DO) (5:15 SSambou R.N.) Vitals (04:49 01/21/2017 PHutchinson DO) (4:51 JSanders R.N.) PT with INR Urgent (05:18 01/21/2017 PHutchinson DO) (Ack 5:27 Vishnu) (5:31 JSanders R.N.) MEDICATION ORDERS: IV FLUIDS: IV Saline Lock (04:49 01/21/2017 PHutchinson DO) (5:15 JRomanelli R.N.) Dilaudid IV 0.5 mg (HIGH ALERT MEDICATION, NOW) (07:31 01/21/2017 PHutchinson DO) (7:33 Rosalba R.N.) ORDER SHEET NOTES: [Electronically signed by Logan Madrid R.N. (16:46 01/21/2017)] [Electronically signed by Paolo Shepard DO (08:14 01/22/2017)] [Electronically locked/signed by Logan Madrid R.N. (16:46 01/21/2017)]
--- NOTE | 2017-01-21 07:38 | ED ORDER SUMMARY ---
..... Patient: YANDEL CALVO OrderSheet [facility] VisitID: [id number] [place] [address] 71y, M Registration Date/Time: 01/21/2017 ORDER SHEET Weight: 117.0 kg (stated) Allergies: No Known Drug Allergy GENERAL ORDERS: Chest 2V Urgent (04:48 01/21/2017 PHutchinson DO) (5:16 JRomanelli R.N.) Auto Leasing Manager (Continuous) (04:49 01/21/2017 PHutchinson DO) (4:58 SSambou R.N.) UA-Culture if indicated Urgent (04:49 01/21/2017 PHutchinson DO) (Ack 5:27 Vishnu) (6:55 JSanders R.N.) Cardiac Panel Stat (04:49 01/21/2017 PHutchinson DO) (5:14 JRomanelli R.N.) BNP Urgent (04:49 01/21/2017 PHutchinson DO) (5:14 JRomanelli R.N.) Amylase Urgent (04:49 01/21/2017 PHutchinson DO) (5:14 JRomanelli R.N.) Pulse oximeter (04:49 01/21/2017 PHutchinson DO) (4:51 JSanders R.N.) EKG - ER Stat (04:49 01/21/2017 PHutchinson DO) (5:15 SSambou R.N.) Vitals (04:49 01/21/2017 PHutchinson DO) (4:51 JSanders R.N.) PT with INR Urgent (05:18 01/21/2017 PHutchinson DO) (Ack 5:27 Vishnu) (5:31 JSanders R.N.) MEDICATION ORDERS: IV FLUIDS: IV Saline Lock (04:49 01/21/2017 PHutchinson DO) (5:15 JRomanelli R.N.) Dilaudid IV 0.5 mg (HIGH ALERT MEDICATION, NOW) (07:31 01/21/2017 PHutchinson DO) (7:33 Rosalba R.N.) ORDER SHEET NOTES: [Electronically signed by Logan Madrid R.N. (16:46 01/21/2017)] [Electronically signed by Paolo Shepard DO (08:14 01/22/2017)] [Electronically locked/signed by Logan Madrid R.N. (16:46 01/21/2017)]
--- NOTE | 2017-01-21 07:38 | ED CLINICAL REPORT ---
Clinical Report - Physicians/Mid Levels [facility] [address] [place] [address] 01/21/2017 4:16 Patient: YANDEL CALVO Time Seen: 04:45. Arrived- By private vehicle. Historian- patient. HISTORY OF PRESENT ILLNESS Chief Complaint: BACK PAIN LEG SWELLING. This started several weeks ago and is still present. It was gradual in onset and has been waxing/waning. At its maximum, severity described as moderate. When seen in the E.D., severity described as moderate. Modifying factors- worsened by movement and walking. Relieved by rest. (states back hurts (chronic) and can't keep his legs elevated which usually helps his lower extremity swelling). The patient has had fatigue. (Back pain was for 15 years, couple weeks for bilat legs). Similar symptoms previously: Recent medical care: The patient was seen recently by a health care provider. REVIEW OF SYSTEMS No fever, sinus drainage, nasal congestion, difficulty breathing or chest pain. No abdominal pain, nausea, vomiting, diarrhea or black stools. No bloody stools, difficulty with urination or headache. The patient has had moderate lower back pain. It has been similar to previous symptoms. He has had difficulty with ambulation. It has been associated with pain in both legs. It has been similar to previous symptoms. All systems otherwise negative, except as recorded above. PAST HISTORY PROBLEMS: Head Injury. Headache. Weakness. Renal Insufficiency. Atrial Fibrillation. Congestive Heart Failure. Pedal Edema. Stomach Cancer. Parotitis. Dysphagia. GI Disease. Hypoxia. Cancer. Vomiting. Pancreatitis. Peripheral Arterial Occlusive Disease. Paresthesia. Peripheral Vascular Disease. Constipation. Panic Attack. Anxiety Reaction. Cellulitis. Hypercholesterolemia. Chest Pain. Syncope. Coronary Artery Disease. COPD - Chronic Obstructive Pulmonary Disease. Hypertension. Chronic Back Pain - takes chronic narcotics for this and has had MRI and neurosurgery consultations (Dr Jordana Terrazas) SURGERIES: Aortic stent placement . Appendectomy. Carotid Surgery. Cholecystectomy. Colonoscopy. Coronary Angioplasty. Coronary Artery Bypass Graft. Endoscopy. Femoral artery stents. Inguinal Hernia Repair. Peripheral Vascular Surgery. Polyp Removal (stomach). Medications: Alprazolam Oral 0.5 mg, as needed. Aspirin Oral (Tablet Chewable 81 mg) 1 tablet, daily. Combivent Inhalation. Crestor Oral (Tablet 10 mg) 1 tablet, daily. Cyclobenzaprine HCl Oral 10 mg, daily. Finasteride 5mg, daily. Hydrocodone-Acetaminophen Oral (Tablet 10-300 mg), 6x daily. Isosorbide Mononitrate Oral 30mg, daily. Lasix Oral (Tablet 40 mg) 1 tablet, daily. Lexapro Oral 10 mg, daily. Lisinopril Oral 20 mg, daily. Metoprolol Succinate ER Oral (Tablet Extended Release 24 Hour 200 mg) 1 tablet, daily. MiraLax Oral. Nitroglycerin Sublingual 0.4 mg, PRN. Protonix Oral (Tablet Delayed Release 40 mg) 1 tablet, daily. Pulmicort Inhalation. Q-daniel. Tamsulosin HCl Oral 0.4 mg, daily. Venlafaxine HCl Oral 75 mg. Warfarin Sodium Oral 5 mg (F/S/M/W takes 6mg). Allergies: No Known Drug Allergy. SOCIAL HISTORY Smoker- current status unknown. History of drug use: marijuana. No alcohol use. ADDITIONAL NOTES The nursing notes have been reviewed. PHYSICAL EXAM Vital Signs: 01/21/2017 04:21 BP: 155/81. HR: 72. RR: 22. O2 saturation: 98%. Temp: 97.7 F. Pain level now: 5/10. Appearance: Alert. Patient in mild distress. Eyes: No scleral icterus or pale conjunctivae. ENT: Pharynx normal. No pharyngeal erythema or tonsillar exudate. The mucous membranes are not dry. Neck: Normal inspection. Neck supple. CVS: Normal heart rate and rhythm. Heart sounds normal. Pulses normal. No decreased pulses. Respiratory: No respiratory distress. Breath sounds normal. Abdomen: No visible injury. Soft and nontender. No mass. Back: Moderate soft-tissue tenderness in the right lower and left lower lumbar area. No CVA tenderness. Skin: Skin warm and dry. Normal skin color. Normal skin turgor. Extremities: Extremities exhibit normal ROM. No lower extremity edema. Neuro: Oriented X 3. No motor deficit. No sensory deficit. LABS, X-RAYS, AND EKG EKG: EKG time: (05:12). Normal sinus rhythm. Rate: 650. Normal P waves. Normal ANTONI. Normal QRS complex. Normal axis. Non-specific ST segment / T wave abnormalities. Non-specific T wave flattening in lead aVL and V4. Non-specific T wave inversion in lead V1, V2 and V3. EKG unchanged when compared with prior EKG. (no change from 01DEC2016). The study has been interpreted contemporaneously by me. The EKG appears to be a good tracing. Rhythm Strip #1: Normal sinus rhythm. Regular rhythm. Narrow QRS complexes. No ectopy. Chest X-ray: No acute disease. (IMPRESSION: 1. CABG 2. Left basilar scarring 3. No acute changes). Views: PA and lateral. Technique: good. The X-rays were interpreted contemporaneously by me. The X-rays were discussed with the radiologist (via PACS note). Laboratory Tests: UA-Culture if indicated: (ESTUARDO: 01/21/2017 06:30) ( MsgRcvd 01/21/2017 07:15) Final results Test Result Flag Units (Reference) URINE COLOR YELLOW URINE APPEARANCE CLEAR URINE GLUCOSE NEGATIVE (NEGATIVE) URINE BILIRUBIN NEGATIVE (NEGATIVE) URINE KETONE NEGATIVE (NEGATIVE) URINE SPECIFIC GRAVITY 1.010 (1.010-1.030) URINE PH 6.5 (5.0-8.0) URINE PROTEIN NEGATIVE (NEGATIVE) URINE UROBILINOGEN 2.0 EU/dL (0.2-1.0) The urobilinogen reagent area may react with interferingsubstances known to react with Brandi's reagent such asp-aminosalicylic acid and sulfonamides. Atypical colorreactions may be obtained in the presence of highconcentrations of p-aminobenzoic acid. The absence ofurobilinogen cannot be determined with this test. URINE NITRITE NEGATIVE (NEGATIVE) URINE BLOOD TRACE-INTACT (NEGATIVE) URINE LEUK ESTERASE NEGATIVE (NEGATIVE) URINE RBC 0-1 rbc/hpf (0-1) URINE WBC RARE wbc/hpf (0-1) URINE EPITHELIAL CELLS RARE EPI/hpf (0-5) URINE BACTERIA NONE SEEN (NONE SEEN) URINE COMMENT CULT NOT INDICATED URINE CULTURES ARE SET-UP BASED ON THE FOLLOWING CRITERIA:POSITIVE NITRITEPOSITIVE LEUKOCYTE ESTERASEGREATER THAN 10 WHITE BLOOD CELLSMODERATE (2+) OR GREATER BACTERIA CBC w Diff: (ESTUARDO: 01/21/2017 05:00) ( [facility] 01/21/2017 05:19) Final results Test Result Flag Units (Reference) WHITE BLOOD COUNT 6.0 K/uL (4.5-11.5) RED BLOOD COUNT 4.21 L M/uL (4.50-5.90) HEMOGLOBIN 13.1 L gm/dL (13.5-17.5) HEMATOCRIT 38.9 L % (41.0-53.0) MEAN CELL VOLUME 93 fL (80-100) MEAN CORPUSCULAR HGB 31 pg (26-34) MEAN CORPUSCULAR HGB CONC 34 g/dL (31-37) RED CELL DISTRIBUTION WIDTH 13.2 % (11.6-14.8) PLATELET COUNT 150 K/uL (150-400) NEUTROPHIL % 61.5 % (50-75) LYMPH % 27.0 % (25-40) MONO % 9.5 % (3-14) EOSINOPHIL % 1.7 % (0-4) BASOPHIL % 0.3 % (0-2) PT with INR: (ESTUARDO: 01/21/2017 05:00) ( [facility] 01/21/2017 05:28) Final results Test Result Flag Units (Reference) INR 1.3 H (0.8-1.2) Low Intensity Therapy: INR 1.5-2.0 PT range 18.5-23.1Mod.Intensity Therapy: INR 2.0-3.0 PT range 23.1-31.5High Intensity Therapy: INR 2.5-3.5 PT range 27.4-35.5High Intensity Therapy 2: INR 3.0-4.0 PT range 31.5-39.3 BNP: (ESTUARDO: 01/21/2017 05:00) ( [facility] 01/21/2017 05:34) Final results Test Result Flag Units (Reference) B-TYPE NATRIURETIC PEPTIDE 134 H pg/ml (5-100) Amylase: (ESTUARDO: 01/21/2017 05:00) ( [facility] 01/21/2017 05:32) Final results Test Result Flag Units (Reference) AMYLASE 43 U/L (25-115) CHEM 13 PANEL: (ESTUARDO: 01/21/2017 05:00) ( MsgRcvd 01/21/2017 05:34) Final results Test Result Flag Units (Reference) GLUCOSE 117 H mg/dL (70-110) BUN 18 mg/dL (7-18) CREATININE 1.1 mg/dL (0.6-1.3) Estimated GFR >60 mL/min Estimated GFR- >60 mL/min Note: Persistent reduction over 3 months in eGFR<60 mL/min/1.73 m2 defines CKD. Patients with eGFR values>=60 mL/min/1.73 m2 may also have CKD if evidence ofpersistent proteinuria. Additional information may be foundat www.[email or web address].org. SODIUM 143 mmol/L (136-145) POTASSIUM 3.9 mmol/L (3.5-5.1) CHLORIDE 104 mmol/L (98-107) CARBON DIOXIDE 31 mmol/L (21-32) CALCIUM 8.8 mg/dL (8.5-10.1) TOTAL PROTEIN 6.5 g/dL (6.4-8.2) ALBUMIN 3.7 g/dL (3.3-5.0) BILIRUBIN, TOTAL 0.4 mg/dL (0.0-1.0) ALKALINE PHOSPHATASE 64 U/L (46-116) AST (SGOT) 15 U/L (15-37) ALT (SGPT) 22 U/L (12-78) MAGNESIUM 2.0 mg/dL (1.8-2.4) CPK 106 U/L (24-260) TROPONIN I <0.05 ng/mL (0.00-1.5) TROPONIN REFERENCE RANGE:<0.1 NEGATIVE0.1-1.5 INDETERMINANT>1.5 POSITIVE . Pulse Oximetry: 01/21/2017 04:21 O2 saturation: 98%. (FIO2 - room air). Interpretation: normal. PROGRESS AND PROCEDURES Course of Care: Dilaudid 0.5 mg IVP given. There is nothing new or different about his pain or leg swelling today. He is informed of the need to have further narcotics prescribed by his pcp / pain specialist. He has good access to primary care. No signs of spinal / epidural abscess / discitis or AAA or UTI. May consider repeat MRI is clinically indicated (nonemergently). He declines offered steroid therapy. Prior neurosurgery consultation with Dr Gustavo Terrazas MD revealed no benefit from surgical treatment --> medical managment. Patient/family counseled. Old ED records reviewed. Patient has had multiple ED visits (Pt has received narcotic managment at [facility] ED 4 times in past 12 months, although PDMP reveals that he did not fill his RX's for narcotics from his ED visits.). Disposition: Discharged. Condition: stable and improved. CLINICAL IMPRESSION Bilateral pedal edema secondary to congestive heart failure and chronic venous insufficiency. Oral anticoagulation therapy with terminal gauger use and subtherapeutic INR. Chronic nontraumatic lumbar back pain associated with degenerative joint disease of the lumbar spine. No radiculopathy or neurological deficit. INSTRUCTIONS Drink plenty of fluids. No alcohol. Warnings: Further evaluation is necessary in order to recheck abnormal lab, obtain test results, conduct further tests and assess the possibility of serious illness. It is very important to follow up with a physician. SEDATIVE MEDICATION: You were given sedative medication during your visit. Do not drive or operate dangerous machinery. CONTROLLED SUBSTANCE WARNINGS. GENERAL WARNINGS: Return or contact your physician immediately if your condition worsens or changes unexpectedly, if not improving as expected, or if other problems arise. Your Current Medications: CONTINUE TAKING THE FOLLOWING MEDICATIONS: Alprazolam Oral : 0.5 mg, prn. Aspirin Oral : Tablet Chewable 81 mg, 1 tablet daily. Combivent Inhalation. Crestor Oral : Tablet 10 mg, 1 tablet daily. Cyclobenzaprine HCl Oral : 10 mg daily. Finasteride* : 5mg daily. Hydrocodone-Acetaminophen Oral : Tablet 10-300 mg, 6x daily. Isosorbide Mononitrate Oral : 30mg daily. Lasix Oral : Tablet 40 mg, 1 tablet daily. Lexapro Oral : 10 mg daily. Lisinopril Oral : 20 mg daily. Metoprolol Succinate ER Oral : Tablet Extended Release 24 Hour 200 mg, 1 tablet daily. MiraLax Oral. Nitroglycerin Sublingual : 0.4 mg PRN. Protonix Oral : Tablet Delayed Release 40 mg, 1 tablet daily. Pulmicort Inhalation. Q-daniel*. Tamsulosin HCl Oral : 0.4 mg daily. Venlafaxine HCl Oral : 75 mg. Warfarin Sodium Oral : 5 mg, F/S/M/W takes 6mg. Follow-up: Follow up with your doctor at [facility] tomorrow. (Electronically signed by Paolo Shepard DO 01/22/2017 8:14)
--- NOTE | 2017-01-21 07:38 | ED NURSING NOTES ---
Clinical Report - Nurses [facility] [address] [place] [address] 01/21/2017 4:16 Patient: YANDEL CALVO TRIAGE Triage time 04:Jan 21 2017. Acuity: LEVEL 3. Chief Complaint: BACK PAIN and (bilat leg swelling and pain). 04:27 01/21/17. SEPSIS SCREEN: Sepsis Screen. Negative (no infection suspected/documented). ARASELI COMA SCORE: [place] Coma Scale: 15- eyes open spontaneously (4); best verbal response- oriented x 4 (5); best motor response- obeys commands (6). --04:28 Nichole Welsh R.N. 04:21 01/21/17. BP: 155/81 (regular adult cuff) taken on the left arm, while sitting. HR: 72. RR: 22. O2 saturation: 98% on room air. Temp: 97.7 F (oral). Pain level now: 5/10. --04:28 Nichole Welsh R.N. Weight: 117 kg stated. Height/Length: 76 inches Per Patient. BMI: 31.4. --04:27 Nichole Welsh R.N. Medications Alprazolam Oral 0.5 mg, as needed. Aspirin Oral (Tablet Chewable 81 mg) 1 tablet, daily. Combivent Inhalation. Crestor Oral (Tablet 10 mg) 1 tablet, daily. Cyclobenzaprine HCl Oral 10 mg, daily. Finasteride 5mg, daily. Hydrocodone-Acetaminophen Oral (Tablet 10-300 mg), 6x daily. Isosorbide Mononitrate Oral 30mg, daily. Lasix Oral (Tablet 40 mg) 1 tablet, daily. Lexapro Oral 10 mg, daily. Lisinopril Oral 20 mg, daily. Metoprolol Succinate ER Oral (Tablet Extended Release 24 Hour 200 mg) 1 tablet, daily. MiraLax Oral. Nitroglycerin Sublingual 0.4 mg, PRN. Protonix Oral (Tablet Delayed Release 40 mg) 1 tablet, daily. Pulmicort Inhalation. Q-daniel. Tamsulosin HCl Oral 0.4 mg, daily. Venlafaxine HCl Oral 75 mg. Warfarin Sodium Oral 5 mg (F/S/M/W takes 6mg). --04:25 Nichole Welsh R.N. Allergies No Known Drug Allergy. --04:25 Nichole Welsh R.N. History Arrived by private vehicle. Historian: patient. Accompanied by family. Onset. (Back pain was for 15 years, couple weeks for bilat legs). ( Patient says he has fallen within the last day). He has had weakness. ( Anxiety). 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 PAST MEDICAL HX: Tetanus status: up-to-date. SOCIAL HX: Smoker- current status unknown. History of heavy drug use: marijuana. Recently used drugs. No alcohol use. No infectious disease exposure. ABUSE ASSESSMENT: No report of abuse. SELF HARM ASSESSMENT: A self harm assessment was performed. The patient answered "no" to the question "Do you have thoughts of harming or killing yourself?" and "Have you recently had thoughts about harming or killing others?". --04:28 Nichole Welsh R.N. 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 --06:55 Antwan Meza R.N. Primary physician (Javon zee (pcp)). --06:56 Antwan Meza R.N. PROBLEMS: Back Pain. Head Injury. Headache. Weakness. Renal Insufficiency. Atrial Fibrillation. Congestive Heart Failure. Pedal Edema. Stomach Cancer. Parotitis. Dysphagia. GI Disease. Hypoxia. Cancer. Vomiting. Pancreatitis. Peripheral Arterial Occlusive Disease. Paresthesia. Peripheral Vascular Disease. Constipation. Panic Attack. Anxiety Reaction. Cellulitis. Tetanus Status. Hypercholesterolemia. Chest Pain. Syncope. Coronary Artery Disease. COPD - Chronic Obstructive Pulmonary Disease. Hypertension. Chronic Back Pain. --04:26 Nichole Welsh R.N. ADDITIONAL SURGERIES: Aortic stent placement . Appendectomy. Carotid Surgery. Cholecystectomy. Colonoscopy. Coronary Angioplasty. Coronary Artery Bypass Graft. Endoscopy. Femoral artery stents. Inguinal Hernia Repair. Peripheral Vascular Surgery. Polyp Removal (stomach). --04: Nichole Welsh R.N. Interventions ID band on patient. To treatment room. --04:28 Nichole Welsh R.N. PHYSICAL ASSESSMENT 04:30 01/21/17. To room via wheelchair. Patient gowned. GENERAL / NEURO / PSYCH: Alert. Oriented X 4. Appears in pain and anxious. RESPIRATORY: Mild respiratory distress. Chest nontender. CVS: Normal heart rate and rhythm. Capillary refill less than 2 seconds. GI / : Abdomen soft and nontender. Bowel sounds within normal limits. EXTREMITIES: Sensation intact in extremities. ROM of extremities within normal limits. BACK: Normal inspection of the neck and back. Limited ROM of the back in the lumbar spine (decreased rotation to the right) and (decreased rotation to the left) (Reaching to turn lamp on hurts his back). No neck or back tenderness. --04:30 Nichole Welsh R.N. NURSING PROGRESS NOTES 04:30 01/21/17. The plan of care for this patient has been created. Monitoring of patient in place. Patient gowned. Head of bed elevated. Reassurance given. Two patient identifiers checked. Call light placed in reach. Side rails up x 2. Bed placed in lowest position. Brakes of bed on. Patient ready for evaluation- chart flagged and ED physician notified. --04:30 Nichole Welsh R.N. 05:05 01/21/2017 Site #1 started via IV in the right antecubital space with an 20g angiocath, with aseptic technique and good blood return; one attempt. Blood drawn: rainbow set. Labeled in the presence of the patient and sent to the lab. Saline lock flushed with 10 mL saline. --05:15 Antwan Meza R.N. 05:15 01/21/17. Patient transported to radiology by stretcher with tech. --05:16 Antwan Meza R.N. 05:23 01/21/17. Patient returned from radiology by stretcher with tech. --05:23 Antwan Meza R.N. late entry - 06:00 01/21/17. ( Patient resting quietly, son at bedside). --06:56 Nichole Welsh R.N. late entry - 06:15 01/21/17. ( Gave patient fluids to help with urine sample). --06:57 Nichole Welsh R.N. 04:50 01/21/17. HR: 67. RR: 16. O2 saturation: 94% on room air. --06:58 Nichole Welsh R.N. 05:00 01/21/17. HR: 65. RR: 22. O2 saturation: 94% on room air. --06:58 Nichole Welsh R.N. 05:20 01/21/17. BP: 138/74 (large adult cuff) taken on the left arm, while sitting. HR: 61. RR: 14. O2 saturation: 95%. --06:59 Nichole Welsh R.N. 05:30 01/21/17. BP: 121/89 (regular adult cuff) taken on the left arm, while sitting. HR: 63. RR: 15. O2 saturation: 91% on room air. --07:00 Nichole Welsh R.N. 05:50 01/21/17. BP: 128/68 (regular adult cuff) taken on the left arm, while sitting. RR: 17. O2 saturation: 86% on room air. --07:00 Nichole Welsh R.N. 06:30 01/21/17. BP: 155/74 (regular adult cuff) taken on the left arm, while sitting. RR: 15. O2 saturation: 92% on room air. --07:01 Nichole Welsh R.N. EKG time: (05:12). EKG was performed by a tech and shown to the ED physician. --07:12 Margarita Mendoza 07:15 01/21/17. BP: 147/74. HR: 58. RR: 12. O2 saturation: 9%. --07:16 Gianna Ingram R.N. 07:16 01/21/17. The patient is resting quietly. Overall patient status is the same- he states feels the same. GENERAL / NEURO / PSYCH: Alert. RESPIRATORY: No respiratory distress. SKIN: Skin is warm and dry. --07:16 Gianna Ingram R.N. 07:33 01/21/2017 Dilaudid (HYDROmorphone HCl PF) IVP 0.5 mg given over 2 minute(s) via site #1. Allergies verified, confirmed 5 rights and sedative warning given to the patient. IV patency established. IV site checked: no pain, redness, or swelling. IV flushed thoroughly pre- and post-medication administration. IVP given by RN. --07:33 Logan Madrid R.N. DISPOSITION / DISCHARGE 07:35 01/21/2017 Site #1 removed upon discharge. Catheter intact. --07:35 Logan Madrid R.N. 07:35 01/21/17. Condition at departure: improved. The goals identified in the patient's plan of care were met. No learning barriers present. Discharge instructions provided and reviewed with the patient. Reviewed warnings. Reviewed medication(s). Treatments reviewed. Patient verbalized understanding. Written instructions provided in Turkmen. The patient was discharged by the physician. He was discharged home and accompanied by family. He left the Emergency Department ambulatory and via private vehicle. Family member driving. FALL RISK ASSESSMENT: Fall risk assessment completed. No fall risk identified. --07:35 Logan Madrid R.N. 07:34 01/21/17. BP: 150/68. HR: 60. RR: 16. O2 saturation: 96% on room air. Temp: 98.1 F (oral). --07:35 Logan Madrid R.N. 07:52 01/21/17. ( After DC IV, pt stated the IV hurt, on assessment, and during removal IV had a small hematoma. Pt stated that the medication (Dilaudid) did not infuse into vein, dilaudid was infused IV push, then after, site infiltrated.). --07:52 Logan Madrid R.N. 07:52 01/21/17. Departure time: 07:Jan 21 2017. --07:52 Logan Madrid R.N. Locked/Released at 01/21/2017 16:46 by Logan Madrid R.N.
--- NOTE | 2017-01-22 08:15 | ED MED RECONCILIATION SUMMARY ---
Patient: YANDEL CALVO Medication Reconciliation Report [facility] VisitID: [id number] [place] [address] 71y, M Registration Date/Time: 01/21/2017 Weight: 117.0 kg Height/Length: 76 in. BMI: 31.4 ALLERGIES: No Known Drug Allergy The patient's Home Medications are listed below: CONTINUE TAKING THE FOLLOWING MEDICATIONS: Alprazolam Oral 0.5 mg Aspirin Oral (81 mg) 1 tablet, daily Combivent Inhalation Crestor Oral (10 mg) 1 tablet, daily Cyclobenzaprine HCl Oral 10 mg, daily Finasteride 5mg, daily Hydrocodone-Acetaminophen Oral (10-300 mg), 6x daily Isosorbide Mononitrate Oral 30mg, daily Lasix Oral (40 mg) 1 tablet, daily Lexapro Oral 10 mg, daily Lisinopril Oral 20 mg, daily Metoprolol Succinate ER Oral (200 mg) 1 tablet, daily MiraLax Oral Nitroglycerin Sublingual 0.4 mg, PRN Protonix Oral (40 mg) 1 tablet, daily Pulmicort Inhalation Q-daniel Tamsulosin HCl Oral 0.4 mg, daily Venlafaxine HCl Oral 75 mg Warfarin Sodium Oral 5 mg, F/S/M/W takes 6mg The source(s) of the original Home Medication information: Not obtained. The following Medications were given to the patient in the Emergency Department: Dilaudid [IVP] IVP 0.5 mg, administered: 01/21/2017 7:33:00 AM The following Medications were prescribed to the patient: None.
--- NOTE | 2017-01-22 08:15 | ED MED RECONCILIATION SUMMARY ---
Patient: YANDEL CALVO Medication Reconciliation Report [facility] VisitID: [id number] [place] [address] 71y, M Registration Date/Time: 01/21/2017 Weight: 117.0 kg Height/Length: 76 in. BMI: 31.4 ALLERGIES: No Known Drug Allergy The patient's Home Medications are listed below: CONTINUE TAKING THE FOLLOWING MEDICATIONS: Alprazolam Oral 0.5 mg Aspirin Oral (81 mg) 1 tablet, daily Combivent Inhalation Crestor Oral (10 mg) 1 tablet, daily Cyclobenzaprine HCl Oral 10 mg, daily Finasteride 5mg, daily Hydrocodone-Acetaminophen Oral (10-300 mg), 6x daily Isosorbide Mononitrate Oral 30mg, daily Lasix Oral (40 mg) 1 tablet, daily Lexapro Oral 10 mg, daily Lisinopril Oral 20 mg, daily Metoprolol Succinate ER Oral (200 mg) 1 tablet, daily MiraLax Oral Nitroglycerin Sublingual 0.4 mg, PRN Protonix Oral (40 mg) 1 tablet, daily Pulmicort Inhalation Q-daniel Tamsulosin HCl Oral 0.4 mg, daily Venlafaxine HCl Oral 75 mg Warfarin Sodium Oral 5 mg, F/S/M/W takes 6mg The source(s) of the original Home Medication information: Not obtained. The following Medications were given to the patient in the Emergency Department: Dilaudid [IVP] IVP 0.5 mg, administered: 01/21/2017 7:33:00 AM The following Medications were prescribed to the patient: None.
--- NOTE | 2017-01-22 08:15 | ED MAR SUMMARY ---
..... Medication Administration Record [facility] [address] [place] [address] Patient: YANDEL CALVO Visit ID: [id number] 71y, M Weight: 117.0 kg Height/Length: 76 in BMI: 31.4 ALLERGIES: No Known Drug Allergy Given 07:33 01/21/2017 Logan Madrid R.N. Medication Administered: DILAUDID [IVP] (HYDROMORPHONE HCL PF), Dose: 0.5 mg IVP over 2 minute(s), Site: #1 right AC. Medication Ordered: Dilaudid IV 0.5 mg (HIGH ALERT MEDICATION, NOW).
--- NOTE | 2017-01-22 08:15 | ED DISCHARGE INSTRUCTIONS ---
Patient: YANDEL CALVO General Instructions [facility] VisitID: [id number] [place] [address] 71y, M Registration Date/Time: 01/21/2017 Bilateral pedal edema secondary to congestive heart failure and chronic venous insufficiency. Oral anticoagulation therapy with prison use and subtherapeutic INR. Chronic nontraumatic lumbar back pain associated with degenerative joint disease of the lumbar spine. No radiculopathy or neurological deficit. INSTRUCTIONS Drink plenty of fluids. No alcohol. Warnings: Further evaluation is necessary in order to recheck abnormal lab, obtain test results, conduct further tests and assess the possibility of serious illness. It is very important to follow up with a physician. SEDATIVE MEDICATION: You were given sedative medication during your visit. Do not drive or operate dangerous machinery. CONTROLLED SUBSTANCE WARNINGS. GENERAL WARNINGS: Return or contact your physician immediately if your condition worsens or changes unexpectedly, if not improving as expected, or if other problems arise. Your Current Medications: CONTINUE TAKING THE FOLLOWING MEDICATIONS: Alprazolam Oral : 0.5 mg, prn. Aspirin Oral : Tablet Chewable 81 mg, 1 tablet daily. Combivent Inhalation. Crestor Oral : Tablet 10 mg, 1 tablet daily. Cyclobenzaprine HCl Oral : 10 mg daily. Finasteride* : 5mg daily. Hydrocodone-Acetaminophen Oral : Tablet 10-300 mg, 6x daily. Isosorbide Mononitrate Oral : 30mg daily. Lasix Oral : Tablet 40 mg, 1 tablet daily. Lexapro Oral : 10 mg daily. Lisinopril Oral : 20 mg daily. Metoprolol Succinate ER Oral : Tablet Extended Release 24 Hour 200 mg, 1 tablet daily. MiraLax Oral. Nitroglycerin Sublingual : 0.4 mg PRN. Protonix Oral : Tablet Delayed Release 40 mg, 1 tablet daily. Pulmicort Inhalation. Q-daniel*. Tamsulosin HCl Oral : 0.4 mg daily. Venlafaxine HCl Oral : 75 mg. Warfarin Sodium Oral : 5 mg, F/S/M/W takes 6mg. Follow-up: Follow up with your doctor at [facility] tomorrow. ADDITIONAL INFORMATION Back Pain [Acute Or Chronic] Back pain is usually caused by an injury to the muscles or ligaments of the spine. Sometimes the disks that separate each bone in the spine may bulge and cause pain by pressing on a nearby nerve. Back pain may also appear after a sudden twisting/bending force (such as in a car accident), after a simple awkward movement, or lifting something heavy with poor body positioning. In either case, muscle spasm is often present and adds to the pain. Acute back pain usually gets better in one to two weeks. Back pain related to disk disease, arthritis in the spinal joints or spinal stenosis (narrowing of the spinal canal) can become chronic and last for months or years. Unless you had a physical injury (for example, a car accident or fall) X-rays are usually not ordered for the initial evaluation of back pain. If pain continues and does not respond to medical treatment, x-rays and other tests may be performed at a later time. Home Care: You may need to stay in bed the first few days. But, as soon as possible, begin sitting or walking to avoid problems with prolonged bed rest (muscle weakness, worsening back stiffness and pain, blood clots in the legs). When in bed, try to find a position of comfort. A firm mattress is best. Try lying flat on your back with pillows under your knees. You can also try lying on your side with your knees bent up towards your chest and a pillow between your knees. Avoid prolonged sitting. This puts more stress on the lower back than standing or walking. During the first two days after injury, apply an ICE PACK to the painful area for 20 minutes every 2-4 hours. This will reduce swelling and pain. HEAT (hot shower, hot bath or heating pad) works well for muscle spasm. You can start with ice, then switch to heat after two days. Some patients feel best alternating ice and heat treatments. Use the one method that feels the best to you. You may use acetaminophen (Tylenol) or ibuprofen (Motrin, Advil) to control pain, unless another pain medicine was prescribed. [NOTE: If you have chronic liver or kidney disease or ever had a stomach ulcer or GI bleeding, talk with your doctor before using these medicines.] Be aware of safe lifting methods and do not lift anything over 15 pounds until all the pain is gone. Follow Up with your doctor or this facility if your symptoms do not start to improve after one week. Physical therapy may be needed. [NOTE: If X-rays were taken, they will be reviewed by a radiologist. You will be notified of any new findings that may affect your care.] Get Prompt Medical Attention if any of the following occur: Pain becomes worse or spreads to your legs Weakness or numbness in one or both legs Loss of bowel or bladder control Numbness in the groin or genital area Degenerative Disk Disease Spinal disks are gel-filled cushions between the bones of the spine (vertebrae). The disks act like shock absorbers. Over time, the disks may break down. This disorder is called degenerative disk disease (DDD). DDD can affect the neck or back. It is one of the most common causes of low back pain. It is the leading cause of disability in people under age 45 in the [place]. The pain usually remains localized to the lower back or neck. Muscle spasm is often present and adds to the pain. Disk degeneration is a natural part of aging, although it does not cause pain in most persons. It may also occur as a result of repeated minor injuries due to daily activities, sports, or accidents. It may lead to osteoarthritis of the spine. Back pain related to disk disease may come and go or become chronic and last for months or years. If the disk bulges or ruptures (also called slipped disk or herniated disk), it can put pressure on a nearby spinal nerve and cause neck or back pain that spreads down one arm or leg. X-rays or MRI (magnetic resonance imaging) scan may aid in the diagnosis. For acute pain, treatment consists of anti-inflammatory drugs, muscle relaxants, rest, ice, or heat. Narcotic pain medicines may be needed for short-term treatment of sudden worsening of pain. Due to their addictive potential, narcotics are not advised for long-term pain management. Other types of medicines are preferred. Surgery is usually not used to treat this condition unless there is a complication (such as nerve root compression). Home Care: FOR NECK PAIN: Use a comfortable pillow that supports the head and keeps the spine in a neutral position. The head should not be tilted forward or backward. FOR BACK PAIN: Avoid prolonged sitting. This puts more stress on the lower back than standing or walking. Establishing a regular exercise program to strengthen the supporting muscles of the spine will make it easier to live with DDD. During the first2 days after a flare-up of your pain, apply anice pack to the painful area for 20 minutes every 2-4 hours. This will reduce swelling and pain.Heat (hot shower, hot bath, or heating pad) works well for muscle spasm. You can start with ice, then switch to heat after2 days. Some patients feel best alternating ice and heat treatments. Use the method that feelsbest to you. You may use acetaminophen (Tylenol) or ibuprofen (Motrin, Advil) to control pain, unless another pain medicine was prescribed. [NOTE: If you have chronic liver or kidney disease or ever had a stomach ulcer or GI bleeding, talk with your doctor before using these medicines.] Follow Up with your physician, or as directed by our staff. [NOTE: If x-rays, a CT scan or an MRI scan were taken, they will be reviewed by a radiologist. You will be notified of any new findings that may affect your care.] Return Promptly or contact your doctor if any of the following occur: Increasing back pain New weakness, numbness, or pain in one or both arms or legs Foot drop (foot drags when you walk) Loss of bowel or bladder control Numbness or tingling in the buttock or groin area Unexplained fever over 100.4F (38.0C) Leg Swelling [Bilateral] Swelling of the feet, ankles and legs is called "Edema." It is due to excess fluid collecting in the tissues. Because of gravity, excess fluid in the body settles in the lowest part. This is why the legs and feet are most affected. Some of the causes for edema include: Disease of the heart (congestive heart failure or "CHF") Prolonged standing or sitting (with the legs in the down position) Infection of the feet or legs Venous Insufficiency (congestion of blood in the veins of the legs) Varicose veins (dilated veins of the lower leg) Garters, or clothing that constricts your legs. (These will cause venous congestion by restricting blood flow.) Some medicines (hormones such as control pills; some blood pressure medicines, such as calcium channel blockers; steroids; some antidepressants such as MAO inhibitors and tricyclics.) Menstrual periods with fluid retention Renal insufficiency (a form of kidney disease) Liver failure (Some swelling is normal, but a sudden increase in leg swelling or weight gain can be a sign of a dangerous complication of ). Medical treatment will depend on the cause of your swelling. Diuretics (water pills) may be prescribed to remove excess fluid. Home Care: Do not wear garments that constrict your legs (such as garters). Elevate your legs while lying or sitting. If infection, injury or recent surgery is the cause for your swelling, stay off your legs as much as possible until symptoms improve. If your doctor says that your leg swelling is caused by venous insufficiency or varicose veins, do not sit or coating machine operator helper one place for long periods of time. Take breaks and walk about every few hours. Brisk walking is a good exercise and helps circulate the congested blood from your leg. Talk to your doctor about the use of support stockings to prevent daytime leg swelling. If your doctor says that heart disease is the cause of your leg swelling, follow a low-salt diet to prevent excess fluid retention. Follow Up with your doctor or as advised by our staff. Get Prompt Medical Attention if any of the following occur: New or worsening shortness of breath or chest pain Increasing swelling in both legs or ankles Swelling of the abdomen Redness, warmth or swelling in one leg Fever of 100.4F (38C) or higher, or as directed by your healthcare provider Yellow color to the skin or eyes Rapid, unexplained weight gain You have been given the following additional information: Back Pain (Acute Or Chronic) Degenerative Disk Disease Peripheral Edema, Bilateral (Electronically signed by Paolo Shepard DO 01/22/2017 8:14)
--- NOTE | 2017-01-22 08:15 | ED MAR SUMMARY ---
..... Medication Administration Record Located Within [facility] [address] [place] [address] Patient: YANDEL CALVO Visit ID: [id number] 71y, M Weight: 117.0 kg Height/Length: 76 in BMI: 31.4 ALLERGIES: No Known Drug Allergy Given 07:33 01/21/2017 Logan Madrid R.N. Medication Administered: DILAUDID [IVP] (HYDROMORPHONE HCL PF), Dose: 0.5 mg IVP over 2 minute(s), Site: #1 right AC. Medication Ordered: Dilaudid IV 0.5 mg (HIGH ALERT MEDICATION, NOW).
== END 2017-01-21 07:52 | disposition home or self-care (01) ==
LOC: ED SRH 04:16
DX: R60.0 Localized edema (principal); I11.0 Hypertensive heart disease with heart failure; I50.9 Heart failure, unspecified; I87.2 Venous insufficiency (chronic) (peripheral); R79.1 Abnormal coagulation profile; M51.36 Other intervertebral disc degeneration, lumbar region; Z79.01 Long term (current) use of anticoagulants; I48.91 Unspecified atrial fibrillation; E78.00 Pure hypercholesterolemia, unspecified; I25.10 Atherosclerotic heart disease of native coronary artery without angina pectoris
CPT/HCPCS: 90004; 90100; 90616; 91320; 92530; 92610; 92720; 94060; 95059